=== PATIENT | male | born 1990 | race Caucasian/White ===

== ENCOUNTER 2016-04-20 16:31 | Emergency (ER) | payer MEDICAID ==
[~2016-04-20 16:31] MED LIST: /THIA10TA; ACET65TA; AMITRIP10 PO; AMO500 PO; AUG875 PO; BENZ5TA PO; DOXYCYC100 PO; EFFE75CA75 OR; ELOCONCR TOPICAL; FOLI1TAB; LITH450T OR; MOTRIN800 PO; NAPROSY500 PO; NASONEX NASAL; NO MEDICATIONS; No Historical Meds; RISP12.5 IM; RISP4TAB33 PO; ROBAXIN500 PO; TESSALO100 PO; TRAZ100T OR
== END 2016-04-20 17:10 | disposition left against medical advice (07) ==
LOC: M ED 16:31
DX: Z53.29 Procedure and treatment not carried out because of patient's decision for other reasons (principal)

== ENCOUNTER 2016-08-07 21:57 | Emergency (ER) | payer MEDICAID, OTHER ==
[~2016-08-07] VITALS: Ht 185.4 cm; Wt 81.6 kg
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
[2016-08-08 00:30] VITALS: BP 138/83
[2016-08-08] MEDS ORDERED: IBUPROFEN 600 MG TAB PO ONE (00:30)
--- NOTE | 2016-08-08 09:11 | REP ---
Left wrist four views : There is no fracture or dislocation. Mineralization and joint spaces are normal. There are no calcifications or foreign bodies. Impression: Negative left wrist . Signed by Forest Valdez MD 08/08/2016 09:03 A
--- NOTE | 2016-08-08 09:11 | REP ---
Left humerus two views : There is no fracture or dislocation. Mineralization and joint spaces are normal. There are no calcifications or foreign bodies. Impression: Negative left humerus . Signed by Forest Valdez MD 08/08/2016 09:02 A
== END 2016-08-08 00:34 | disposition home or self-care (01) ==
LOC: M ED 23:01
DX: S60.212A Contusion of left wrist, initial encounter (principal); S46.912A Strain of unspecified muscle, fascia and tendon at shoulder and upper arm level, left arm, initial encounter; V05.00 Pedestrian on foot injured in collision with railway train or railway vehicle in nontraffic accident; Y92.9 Unspecified place or not applicable; Y93.9 Activity, unspecified; Y99.9 Unspecified external cause status; F31.9 Bipolar disorder, unspecified

== ENCOUNTER → 2017-03-17 | Outpatient (CLI) | payer SELFPAY | LOC: M OUTALCOH 10:02 | DX: F10.20 Alcohol dependence, uncomplicated (principal) ==

== ENCOUNTER 2017-03-29 10:42 | Outpatient (RCR) | payer SELFPAY | END 2017-03-30 | LOC: M OUTALCOH 10:42 | DX: F15.20 Other stimulant dependence, uncomplicated (principal); F12.20 Cannabis dependence, uncomplicated; F17.200 Nicotine dependence, unspecified, uncomplicated ==

== ENCOUNTER 2017-06-18 23:05 | Inpatient (IN) | payer MEDICAID, OTHER, SELFPAY ==
[2017-06-18] MEDS ORDERED: SILVER NITRATE APPLICATOR As Ordered (23:29)
[2017-06-19 01:24] LABS: HEMATOCRIT 38.8 % (42.0-52.0); HEMOGLOBIN 14.6 g/dl (13.5-17.5); MEAN CORPUSCULAR HEMOGLOBIN 31.5 pg (27.0-33.0); MEAN CORPUSCULAR VOLUME 83.6 fl (80.0-96.0); PLATELET COUNT, AUTOMATED 304 10^3/uL (150-450); RED BLOOD COUNT 4.64 10^6/uL (4.30-6.10); RED CELL DISTRIBUTION WIDTH 12.9 % (11.5-14.5); WHITE BLOOD COUNT 7.9 10^3/uL (4.0-10.0)
[2017-06-19 01:28] LABS: KETONE, URINE AUTO RFX NEGATIVE (NEGATIVE); LEUKOCYTE ESTERASE UR AUTO RFX NEGATIVE (NEGATIVE); MUCUS, URINE RFX SMALL (NEGATIVE); NITRITE, URINE AUTO RFX NEGATIVE (NEGATIVE); RBC, URINE AUTO RFX 0 /HPF (0-3); SPECIFIC GRAVITY UR AUTO RFX 1.009 (1.002-1.035); SQUAM EPITHELIAL CELL UR AURFX 0 /HPF (0-6); WBC, URINE AUTO RFX 0 /HPF (0-3)
[2017-06-19 01:45] LABS: MEAN CORPUSCULAR HGB CONC 37.6 g/dl (32.0-36.5)
[2017-06-19 01:46] LABS: POS COUNT POS FLAG
[2017-06-19 01:48] LABS: AMPHETAMINES LEVEL URINE NEGATIVE (NEGATIVE); BARBITURATES URINE NEGATIVE (NEGATIVE); BENZODIAZEPINES URINE NEGATIVE (NEGATIVE); CANNABINOIDS URINE POSITIVE (NEGATIVE); COCAINE METABOLITE URINE NEGATIVE (NEGATIVE); METHADONE URINE NEGATIVE (NEGATIVE); OPIATES URINE NEGATIVE (NEGATIVE); PHENCYCLIDINE URINE NEGATIVE (NEGATIVE)
[2017-06-19 01:53] LABS: ALBUMIN/GLOBULIN RATIO 1.21 (1.00-1.93); ALKALINE PHOSPHATASE 99 U/L (45-117); ALT/SGPT 175 U/L (12-78); ANION GAP 9 MEQ/L (8-16); AST/SGOT 78 U/L (7-37); BILIRUBIN,DIRECT 0.2 MG/DL (0.0-0.2); BILIRUBIN,TOTAL 0.6 MG/DL (0.2-1.0); BLOOD UREA NITROGEN 10 MG/DL (7-18); CALCIUM LEVEL 8.9 MG/DL (8.5-10.1); CARBON DIOXIDE LEVEL 22 MEQ/L (21-32); CHLORIDE LEVEL 110 MEQ/L (98-107); GLOMERULAR FILTRATION RATE > 60.0 (>60); GLUCOSE, FASTING 103 MG/DL (70-100); POTASSIUM SERUM 3.1 MEQ/L (3.5-5.1); SALICYLATE LEVEL < 1.7 MG/DL (5.0-30.0); SODIUM LEVEL 141 MEQ/L (136-145); TOTAL PROTEIN 7.3 GM/DL (6.4-8.2)
[2017-06-19 02:43] LABS: ACETAMINOPHEN LEVEL < 2.0 UG/ML (10.0-30.0); ETHYL ALCOHOL (ETHANOL) < 0.003 % (0.000-0.010)
[2017-06-19] MEDS: POTASSIUM CHLORIDE 10 MEQ SR TABLET PO (03:12)
[2017-06-19] MEDS ORDERED: MOM 30ML SUSPENSION UDC PO (03:15)
[2017-06-19] MEDS ORDERED: ACETAMINOPHEN TAB 650MG DOSE (2X325MG) PO (03:15)
[2017-06-19] MEDS ORDERED: MAALOX 30 ML SUSP *UDC PO (03:15)
[2017-06-19] MEDS: NICOTINE 21MG/24HR 1 EA TRANSDERMAL TD (08:51)
[2017-06-19] MEDS ORDERED: NICOTINE 21MG/24HR 1 EA TRANSDERMAL TD (09:00)
[2017-06-19] MEDS: SERTRALINE HCL 50 MG TAB PO (16:30)
[2017-06-19] MEDS: DOCUSATE SODIUM 100 MG CAP PO (21:00)
[2017-06-19] MEDS: traZODone 50 MG TAB PO (22:07)
[2017-06-19] MEDS: TAMSULOSIN 0.4 MG CAP PO (22:07)
[2017-06-20] MEDS: diphenhydrAMINE 50 MG CAP PO (01:14)
[2017-06-20] MEDS: DOCUSATE SODIUM 100 MG CAP PO ×2 (09:00→20:12)
[2017-06-20] MEDS: SERTRALINE HCL 50 MG TAB PO (09:23)
[2017-06-20] MEDS: NICOTINE 21MG/24HR 1 EA TRANSDERMAL TD (16:58)
[2017-06-20] MEDS: hydrOXYzine 25 MG TAB PO (16:58)
[2017-06-20] MEDS: TAMSULOSIN 0.4 MG CAP PO (20:12)
[2017-06-20] MEDS: traZODone 50 MG TAB PO (22:50)
[2017-06-21] MEDS: DOCUSATE SODIUM 100 MG CAP PO ×2 (09:00→21:00)
[2017-06-21] MEDS: SERTRALINE HCL 50 MG TAB PO (09:26)
[2017-06-21] MEDS: hydrOXYzine 25 MG TAB PO ×2 (14:15→21:44)
[2017-06-21] MEDS: TAMSULOSIN 0.4 MG CAP PO (21:44)
[2017-06-21] MEDS: ARIPiprazole 15 MG TAB (AbiLIFY) PO (21:44)
[2017-06-22] MEDS: DOCUSATE SODIUM 100 MG CAP PO ×2 (09:00→21:24)
[2017-06-22] MEDS: hydrOXYzine 25 MG TAB PO ×2 (12:15→18:57)
[2017-06-22] MEDS: ARIPiprazole 15 MG TAB (AbiLIFY) PO (21:24)
[2017-06-22] MEDS: TAMSULOSIN 0.4 MG CAP PO (21:24)
[2017-06-22] MEDS: traZODone 50 MG TAB PO (21:25)
[2017-06-23] MEDS: hydrOXYzine 25 MG TAB PO (08:05)
[2017-06-23] MEDS: DOCUSATE SODIUM 100 MG CAP PO (09:00)
[2017-06-23] MEDS: NICOTINE 21MG/24HR 1 EA TRANSDERMAL TD (11:43)
== END 2017-06-23 13:15 | disposition home or self-care (01) | DRG 885 ==
LOC: M PSY 06-21 13:24 → M ED 23:05 → M PSY 06-19 04:40
DX: F31.5 Bipolar disorder, current episode depressed, severe, with psychotic features (principal); F15.11 Other stimulant abuse, in remission; Z76.5 Malingerer [conscious simulation]; F17.210 Nicotine dependence, cigarettes, uncomplicated; K59.00 Constipation, unspecified; E87.6 Hypokalemia; R79.89 Other specified abnormal findings of blood chemistry; F60.3 Borderline personality disorder

== ENCOUNTER 2018-07-26 12:45 | Emergency (ER) | payer MEDICAID, SELFPAY ==
[~2018-07-26] VITALS: Ht 185.4 cm; Wt 90.9 kg
[2018-07-26 12:45] VITALS: BP 164/102
[~2018-07-26 12:45] MED LIST changes: +ARIP1TAB10 PO; +HYDR-3363 PO; +VITA250T30 PO
[2018-08-02] MEDS ORDERED: AUGM875T28 PO (09:10)
== END 2018-07-26 13:52 | disposition left against medical advice (07) ==
LOC: M ED 12:45
DX: R68.84 Jaw pain (principal); Z53.21 Procedure and treatment not carried out due to patient leaving prior to being seen by health care provider

== ENCOUNTER 2018-07-26 16:00 | Inpatient (IN) | payer MEDICAID, OTHER, SELFPAY ==
[~2018-07-26] VITALS: Ht 182.9 cm; Wt 82.5 kg
[2018-07-26] MEDS ORDERED: HALOPERIDOL 5 MG/ML VIAL (J1630) As Ordered ONE (16:02)
[2018-07-26] MEDS ORDERED: diphenhydrAMINE INJ 50MG/ML VIAL (J1200) As Ordered ONE (16:02)
[2018-07-26] MEDS ORDERED: LORazepam 2 MG/ML VIAL (J2060) IM STA (16:03)
[2018-07-26] MEDS ORDERED: LORazepam 2 MG/ML VIAL (J2060) As Ordered ONE (16:03)
[2018-07-26] MEDS ORDERED: HALOPERIDOL 5 MG/ML VIAL (J1630) IM STA ×2 (16:03→20:51)
[2018-07-26] MEDS ORDERED: diphenhydrAMINE INJ 50MG/ML VIAL (J1200) IM ONE ×2 (16:15→21:00)
[2018-07-26 16:50] LABS: BASO % 0.3 % (0.0-1.0); EOS # 0.1 10^3/uL (0.0-0.50); HEMATOCRIT 43.3 % (42.0-52.0); HEMOGLOBIN 15.7 g/dl (13.5-17.5); MEAN CORPUSCULAR HEMOGLOBIN 32.6 pg (27.0-33.0); MEAN CORPUSCULAR HGB CONC 36.3 g/dl (32.0-36.5); MONO # 0.7 10^3/uL (0.0-0.8); MONO % 5.7 % (0.0-5.0); NEUTROPHILS # 8.6 10^3/uL (1.8-7.7); NEUTROPHILS % 68.8 % (36.0-66.0); PLATELET COUNT, AUTOMATED 292 10^3/uL (150-450); RED BLOOD COUNT 4.81 10^6/uL (4.30-6.10); WHITE BLOOD COUNT 12.4 10^3/uL (4.0-10.0)
--- NOTE | 2018-07-26 16:55 | REP ---
Clinical: Acute cough . Comparison: 04/07/2011 . Findings: The mediastinum and cardiac silhouette are stable and within normal limits for portable technique. The lung thompson are clear without acute consolidation, effusion, or pneumothorax. Skeletal structures are intact. Impression: No acute cardiopulmonary process appreciated. Electronically Signed by Erasmo Pitts MD 07/26/2018 04:45 P
[2018-07-26] MEDS ORDERED: LORazepam 2 MG/ML VIAL (J2060) IV STA ×2 (17:02→22:48)
[2018-07-26] MEDS ORDERED: NS 1,000 ML IV ONE (17:15)
[2018-07-26 17:28] LABS: ACETAMINOPHEN LEVEL < 2.0 UG/ML (10.0-30.0); ALBUMIN 4.2 GM/DL (3.2-5.2); ALT/SGPT 97 U/L (12-78); BILIRUBIN,DIRECT 0.2 MG/DL (0.0-0.2); BILIRUBIN,TOTAL 0.6 MG/DL (0.2-1.0); BLOOD UREA NITROGEN 11 MG/DL (7-18); CARBON DIOXIDE LEVEL 20 MEQ/L (21-32); CHLORIDE LEVEL 108 MEQ/L (98-107); CPK CREATINE PHOSPHOKINASE 184 U/L (39-308); CREATININE FOR GFR 1.14 MG/DL (0.70-1.30); ETHYL ALCOHOL (ETHANOL) 0.138 % (0.000-0.010); GLOMERULAR FILTRATION RATE > 60.0 (>60); GLUCOSE, FASTING 116 MG/DL (70-100); MB/CK RELATIVE INDEX 0.65 (< OR =4); POTASSIUM SERUM 3.3 MEQ/L (3.5-5.1); SALICYLATE LEVEL < 1.7 MG/DL (5.0-30.0); SODIUM LEVEL 142 MEQ/L (136-145); THYROID STIMULATING HORMONE 0.377 uIU/ML (0.358-3.740); TOTAL PROTEIN 7.3 GM/DL (6.4-8.2); TROPONIN I < 0.02 NG/ML (< 0.10)
--- NOTE | 2018-07-26 18:00 | REP ---
Clinical: Altered mental status . Comparison: 12/07/2009 . Findings: The ventricles, sulci, and cisterns are normal in position and appearance. Arreola-white differentiation is maintained. No acute intracranial hemorrhage, mass/mass effect, pathology or trauma/injury. No evidence for acute infarction. No extra-axial fluid collection. Calvarium is intact. 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 Impression: Normal noncontrast head CT. No evidence for acute intracranial pathology or trauma/injury. Electronically Signed by Erasmo Pitts MD 07/26/2018 05:51 P
[2018-07-26 18:58] LABS: AMPHETAMINES LEVEL URINE NEGATIVE (NEGATIVE); BARBITURATES URINE NEGATIVE (NEGATIVE); BENZODIAZEPINES URINE NEGATIVE (NEGATIVE); CANNABINOIDS URINE POSITIVE (NEGATIVE); COCAINE METABOLITE URINE NEGATIVE (NEGATIVE); METHADONE URINE NEGATIVE (NEGATIVE); OPIATES URINE NEGATIVE (NEGATIVE); PHENCYCLIDINE URINE NEGATIVE (NEGATIVE)
[2018-07-26] MEDS ORDERED: POTASSIUM CHLORIDE 10 MEQ SR TABLET PO ONE (20:00)
--- NOTE | 2018-07-26 20:04 | ECGEPIP ---
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
[2018-07-26] MEDS ORDERED: ACETAMINOPHEN TAB 650MG DOSE (2X325MG) PO PRN (20:45)
[2018-07-26] MEDS ORDERED: MAALOX 30 ML SUSP *UDC PO PRN (20:45)
[2018-07-26] MEDS ORDERED: MOM 30ML SUSPENSION UDC PO PRN (20:45)
[2018-07-26] MEDS: THIAMINE 100 MG TAB PO SCH (21:00)
[2018-07-26] MEDS ORDERED: LORazepam 2 MG TAB PO PRN (21:00)
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
[2018-07-26] MEDS ORDERED: chlorproMAZINE INJ 50MG/2ML AMP (J3230) IM STA ×2 (21:47→22:02)
[2018-07-26] MEDS: KCL 40MEQ in NS 1000ML 1,000 ML IV SCH (21:50)
[2018-07-27] VITALS (42 sets, daily range): BP systolic 111–166; BP diastolic 51–90; O2SAT 97
[2018-07-27] MEDS ORDERED: HALOPERIDOL 5 MG/ML VIAL (J1630) IM STA (00:07)
[2018-07-27] MEDS ORDERED: LORazepam 2 MG/ML VIAL (J2060) IM STA (00:07)
[2018-07-27] MEDS: NS 1,000 ML IV SCH ×4 (00:30→02:51)
[2018-07-27] MEDS ORDERED: LORazepam 2 MG/ML VIAL (J2060) IV STA (00:37)
[2018-07-27] MEDS ORDERED: MORPHINE 4 MG/ML 1ML VIAL/SYRINGE (J2270) IV PRN (01:00)
[2018-07-27] MEDS ORDERED: PROPOFOL 200 MG/20 ML VIAL As Ordered ONE (01:03)
[2018-07-27] MEDS ORDERED: PROPOFOL 1,000 MG/100 ML VIAL As Ordered ONE (01:03)
[2018-07-27] MEDS ORDERED: SUCCINYLCHOLINE INJ 200 MG/10 ML VIAL (J0330) IV ONE (01:30)
[2018-07-27] MEDS: MIDAZOLAM INJ 2 MG/2 ML VIAL (J2250) IV PRN ×4 (01:30→16:24)
[2018-07-27] MEDS ORDERED: PROPOFOL 1,000 MG in APPROPRIATE DILUENT 1 EA IV SCH (01:30)
[2018-07-27] MEDS ORDERED: THIAMINE HCL 200 MG/2 ML VIAL (J3411) IV ONE (01:30)
[2018-07-27] MEDS ORDERED: PROPOFOL 200 MG/20 ML VIAL IV ONE (01:30)
[2018-07-27] MEDS: PROPOFOL 1,000 MG in APPROPRIATE DILUENT 1 EA IV SCH ×9 (02:44→21:53)
[2018-07-27 02:50] LABS: ABG HCO3 20.5 MEQ/L (22.0-26.0); ABG O2 SATURATION 99.8 % (95.0-99.0); ABG STANDARD HCO3 21.2 MEQ/L (22.0-26.0); ABG TOTAL CO2 21.6 MEQ/L (22.0-29.0); ABG pH (ARTERIAL) 7.374 UNITS (7.350-7.450)
[2018-07-27 02:52] LABS: ABG PARTIAL PRESSURE O2 465.3 mmHg (75.0-100.0)
[2018-07-27] MEDS: IPRATROPIUM 0.5MG/ALBUTEROL 2.5MG INH SOL UD 3ML (DUONEB)(J7620) NEB SCH ×5 (03:11→20:00)
[2018-07-27] MEDS ORDERED: COMBIVENT RESPIMAT 100-20MCG INHALER 4GM INH SCH (04:00)
[2018-07-27] MEDS: KCL 40MEQ in NS 1000ML 1,000 ML IV SCH (04:15)
[2018-07-27 04:59] LABS: BASO % 0.5 % (0.0-1.0); EOS # 0.1 10^3/uL (0.0-0.50); HEMATOCRIT 35.7 % (42.0-52.0); LYMPH # 2.4 10^3/uL (1.5-6.5); LYMPH % 27.5 % (24.0-44.0); MEAN CORPUSCULAR HEMOGLOBIN 32.3 pg (27.0-33.0); MEAN CORPUSCULAR HGB CONC 35.3 g/dl (32.0-36.5); MEAN CORPUSCULAR VOLUME 91.5 fl (80.0-96.0); MONO # 0.6 10^3/uL (0.0-0.8); MONO % 6.4 % (0.0-5.0); NEUTROPHILS # 5.6 10^3/uL (1.8-7.7); NEUTROPHILS % 64.4 % (36.0-66.0); PLATELET COUNT, AUTOMATED 223 10^3/uL (150-450); WHITE BLOOD COUNT 8.6 10^3/uL (4.0-10.0)
[2018-07-27 05:03] LABS: HEMOGLOBIN 12.6 g/dl (13.5-17.5)
[2018-07-27 05:36] LABS: ALBUMIN 3.1 GM/DL (3.2-5.2); ALT/SGPT 81 U/L (12-78); BILIRUBIN,TOTAL 0.4 MG/DL (0.2-1.0); BLOOD UREA NITROGEN 11 MG/DL (7-18); CALCIUM LEVEL 7.3 MG/DL (8.5-10.1); CARBON DIOXIDE LEVEL 23 MEQ/L (21-32); CHLORIDE LEVEL 116 MEQ/L (98-107); CREATININE FOR GFR 0.93 MG/DL (0.70-1.30); ETHYL ALCOHOL (ETHANOL) < 0.003 % (0.000-0.010); GLOMERULAR FILTRATION RATE > 60.0 (>60); GLUCOSE, FASTING 94 MG/DL (70-100); MAGNESIUM LEVEL 2.1 MG/DL (1.8-2.4); POTASSIUM SERUM 4.2 MEQ/L (3.5-5.1); SODIUM LEVEL 145 MEQ/L (136-145); TOTAL PROTEIN 5.8 GM/DL (6.4-8.2)
--- NOTE | 2018-07-27 08:57 | REP ---
Portable chest x-ray: Single view. 08:15 a.m. film. History: Intubated patient. Comparison study is from 01:17 a.m. on the same date. Findings: Endotracheal tube remain in good position at the level of proximal clavicles. An NG tube enters left upper quadrant of the abdomen. Oxygen delivery tubing and EKG monitoring electrodes are seen. The lungs are well inflated and clear. Pleural angles are sharp. Cardiomediastinal silhouette is unremarkable. Impression: Endotracheal and nasogastric tubes in good position. No acute disease. Electronically Signed by Azar Zamora MD 07/27/2018 08:48 A
--- NOTE | 2018-07-27 08:59 | CR ---
DATE OF CONSULTATION: 07/27/2018 Pulmonary critical care team was asked by hospitalist for consult on Brayan Grajeda. Mr. Grajeda is a 27-year-old male who was initially admitted for alcohol intoxication and behavioral issues but apparently became combative and initially escaped from the emergency room but was brought back again and remained combative and agitated and was eventually intubated. The patient was seen this morning in the intensive care unit (ICU) while intubated, sedated and noncommunicative. No additional history could be obtained from the patient. History was obtained from the history and physical notes from the hospitalist in the computer. The patient initially had a blood alcohol level of 0.138. Urine tox was positive for cannabis. He demonstrated some sinus tachycardia and has remained tachycardia. A sedation vacation is planned for this morning. REVIEW OF SYSTEMS: Unable to be obtained. MEDICATIONS: According to the history and physical, no active medications. According to the hospitalist, the patient had been on psych medications but has not been taking those for a long time. ALLERGIES: No known allergies. PAST MEDICAL HISTORY: Mood disorder with psychosis. Possible history of substance abuse. FAMILY MEDICAL HISTORY: Unobtainable. SOCIAL HISTORY: The patient was listed as a current smoker. He does consume alcohol but it is unclear how much. PHYSICAL EXAMINATION: Vitals: Temperature is 98.6, pulse was 120, respiratory rate 25, blood pressure is 126/74, pulse ox 99%. The patient is on ventilator on pressure regulated volume control with tidal volume of 48, respiratory rate of 14 and PEEP of 5. GENERAL: Patient is sedate and unresponsive. HEENT: Head is normocephalic. Pupils are pinpoint but reactive. Moist mucous membranes. The patient is intubated. Neck: Neck is supple. No cervical lymphadenopathy. No jugular venous distention (JVD). Trachea is midline. Cardiac: Tachycardic. S1, S2. No murmurs. Pulmonary: Clear to auscultation bilaterally. No wheezes, rales, rhonchi or crackles. No accessory muscle use. Abdomen: Soft and nontender. Hypoactive bowel sounds. Extremities: No clubbing, cyanosis or edema. Skin with some scrapes and bruises on the arms and feet. Skin is otherwise warm and dry. Neurologic: No clonus. LABORATORY DATA: WBC 8.6, hemoglobin is 12.6, hematocrit is 35.7, platelets 223. Sodium 145, potassium 4.2, chloride 116, carbon dioxide 23, BUN 11, creatinine 0.93, glucose 94, calcium 7.3, magnesium 2.1, total bili 0.4, AST 81, ALT 81, alkaline phosphatase 68, total protein 5.8, albumin 3.1. Chest x-rays show endotracheal tip about 5.1 cm above the zahra. ASSESSMENT/PLAN: 1. Respiratory failure secondary to altered mental status. The patient is currently intubated. He will be given a trial sedation vacation to determine whether or not to determine whether he can be extubated today. Plan will be to monitor for determination of ability to extubate. 2. Alcohol intoxication. The patient is on a multivitamin. He is on thiamine. He will likely need psychiatric services when he is stable. Total critical care time excluding all procedures was 45 minutes. [facility]
[2018-07-27] MEDS: D5W/0.45% SODIUM CHLORIDE 1,000 ML IV SCH ×2 (09:01→19:00)
--- NOTE | 2018-07-27 09:05 | REP ---
Portable chest x-ray: Single view. 01:17 a.m. film. History: Endotracheal tube placement. Comparison chest x-ray: July 26, 2018 at 04:40 p.m.. Findings: The lateral pleural angles and the lower lung thompson are excluded from the field of view. Endotracheal tube is seen in good position at the level of proximal clavicles. NG tube is seen coursing through the distal mediastinum towards the left upper quadrant. EKG electrodes are seen. The visualized lung thompson are clear. Electronically Signed by Azar Zamora MD 07/27/2018 08:57 A
[2018-07-27] MEDS: PANTOPRAZOLE 40MG INJ (PROTONIX) (C9113) IV SCH (09:53)
[2018-07-27] MEDS: FOLIC ACID 1 MG TAB PO SCH (09:54)
[2018-07-27] MEDS: THIAMINE 100 MG TAB PO SCH ×2 (09:54→19:49)
[2018-07-27] MEDS: CHLORHEXIDINE GLUCONATE 0.12 % 15ML UDC (PERIDEX ORAL RINSE) MT SCH ×2 (09:54→19:49)
[2018-07-27] MEDS: MULTIVITAMINS/MINERALS THERAP 1 TAB PO SCH (09:54)
[2018-07-27] MEDS: ENOXAPARIN 40 MG/0.4 ML SYRINGE (J1650) SC SCH (09:54)
[2018-07-27 10:10] LABS: ABG BASE EXCESS -2.4 (-2.0-2.0); ABG HCO3 21.7 MEQ/L (22.0-26.0); ABG O2 SATURATION 99.5 % (95.0-99.0); ABG PARTIAL PRESSURE CO2 35.5 mmHg (35.0-45.0); ABG PARTIAL PRESSURE O2 188.6 mmHg (75.0-100.0); ABG STANDARD HCO3 22.5 MEQ/L (22.0-26.0); ABG TOTAL CO2 22.8 MEQ/L (22.0-29.0); ABG pH (ARTERIAL) 7.405 UNITS (7.350-7.450)
--- NOTE | 2018-07-27 10:49 | IPNPDOC ---
Subjective Date Seen The patient was seen on 07/27/18. Subjective Chief Complaint/HPI Patient is intubated and sedated, seems comfortable, in no distress General: Reports: ROS Unobtainable Objective Physical Examination General Exam: Positive: No Acute Distress Eye Exam: Positive: PERRLA ENT Exam: Positive: Atraumatic Neck Exam: Positive: Supple; Negative: JVD, thyromegaly, +2 carotid pulse wo bruit, Lymphadenopathy, Other Chest Exam: Positive: Clear to auscultation, Normal air movement Heart Exam: Positive: Rate Normal, Regular Rhythm, Normal S1, Normal S2 Abdomen Exam: Positive: Normal bowel sounds, Soft Extremity Exam: Positive: Normal pulses; Negative: Edema Skin Exam: Positive: Nl turgor and temperature; Negative: Rash Assessment /Plan Problems (1) Altered mental status Status: Acute Problem Text: Patient is intubated to protect airway He is sedated with propofol and ICU Patient will probably be extubated today. Once he is more awake, alert and noncombative Most likely cause of his altered mental status. His alcohol and illicit drug use Continue monitoring I/O. Vital signs and telemetry Further, as per pulmonary critical care consultation Plan/VTE VTE Prophylaxis Ordered?: No VTE Exclusion Mechanical Proph: Low Risk for VTE VTE Exclusion Pharmacological: At Low Risk for VTE VS, I&O, 24H, Fishbone Vital Signs/I&O Vital Signs Date Time Temp Pulse Resp B/P (MAP) Pulse Ox O2 Delivery O2 Flow Rate FiO2 07/27/18 09:00 112 148/73 (98) 99 40 07/27/18 08:00 98.7 25 07/27/18 07:41 Ventilator I&O- Last 24 Hours up to 6 AM 07/27/18 05:59 Intake Total 1000 ml Output Total 1250 ml Balance -250 ml Laboratory Data 24H LABS Laboratory Tests 2 07/26/18 16:05: Anion Gap 14, Glomerular Filtration Rate > 60.0, Calcium Level 9.0, Aspartate Amino Transf (AST/SGOT) 50H, Alanine Aminotransferase (ALT/SGPT) 97H, Alkaline Phosphatase 86, Total Bilirubin 0.6, Direct Bilirubin 0.2, Total Creatine Kinase 184, Creatine Kinase MB 1.0, Creatine Kinase MB Relative Index 0.65, Troponin I < 0.02, Total Protein 7.3, Albumin 4.2, Albumin/Globulin Ratio 1.35, Thyroid Stimulating Hormone (TSH) 0.377, Salicylates Level < 1.7L, Acetaminophen Level < 2.0L, Ethyl Alcohol Level 0.138H 07/26/18 16:25: Immature Granulocyte % (Auto) 0.2, White Blood Count 12.4H, Red Blood Count 4.81, Hemoglobin 15.7, Hematocrit 43.3, Mean Corpuscular Volume 90.0, Mean Corpuscular Hemoglobin 32.6, Mean Corpuscular Hemoglobin Concent 36.3, Red Cell Distribution Width 12.6, Platelet Count 292, Neutrophils (%) (Auto) 68.8H, Lymphocytes (%) (Auto) 24.0, Monocytes (%) (Auto) 5.7H, Eosinophils (%) (Auto) 1.0, Basophils (%) (Auto) 0.3, Neutrophils # (Auto) 8.6H, Lymphocytes # (Auto) 3.0, Monocytes # (Auto) 0.7, Eosinophils # (Auto) 0.1, Basophils # (Auto) 0.0, Nucleated Red Blood Cells % (auto) 0.0, Ammonia 34H 07/26/18 16:55: Bedside Glucose (Misc Panel) 117H 07/26/18 18:26: Urine Amphetamines Screen NEGATIVE, Urine Benzodiazepines Screen NEGATIVE, Urine Opiates Screen NEGATIVE, Urine Methadone Screen NEGATIVE, Urine Barbiturates Screen NEGATIVE, Urine Phencyclidine Screen NEGATIVE, Urine Cocaine Metabolite Screen NEGATIVE, Urine Cannabinoids Screen POSITIVEH 07/27/18 02:45: Blood Gas Bicarbonate Standard 21.2L, Arterial Blood pH 7.374, Arterial Blood Partial Pressure CO2 36.0, Arterial Blood Partial Pressure O2 465.3H, Arterial Blood Total CO2 21.6L, Arterial Blood HCO3 20.5L, Arterial Blood Base Excess - 4.0L, Arterial Blood Oxygen Saturation 99.8H 07/27/18 04:44: Immature Granulocyte % (Auto) 0.2, White Blood Count 8.6, Red Blood Count 3.90L, Hemoglobin 12.6#L, Hematocrit 35.7L, Mean Corpuscular Volume 91.5, Mean Cor puscular Hemoglobin 32.3, Mean Corpuscular Hemoglobin Concent 35.3, Red Cell Distribution Width 12.9, Platelet Count 223, Neutrophils (%) (Auto) 64.4, Lymphocytes (%) (Auto) 27.5, Monocytes (%) (Auto) 6.4H, Eosinophils (%) (Auto) 1.0, Basophils (%) (Auto) 0.5, Neutrophils # (Auto) 5.6, Lymphocytes # (Auto) 2.4, Monocytes # (Auto) 0.6, Eosinophils # (Auto) 0.1, Basophils # (Auto) 0.0, Nucleated Red Blood Cells % (auto) 0.0, Anion Gap 6L, Glomerular Filtration Rate > 60.0, Blood Urea Nitrogen 11, Creatinine 0.93, Sodium Level 145, Potassium Level 4.2#, Chloride Level 116H, Carbon Dioxide Level 23, Calcium Level 7.3#L, Aspartate Amino Transf (AST/SGOT) 81H, Alanine Aminotransferase (ALT/SGPT) 81H, Alkaline Phosphatase 68, Total Bilirubin 0.4, Total Protein 5.8#L, Albumin 3.1#L, Magnesium Level 2.1, Albumin/Globulin Ratio 1.15, Ethyl Alcohol Level < 0.003 07/27/18 06:31: Bedside Glucose (Misc Panel) 90 07/27/18 09:48: Blood Gas Bicarbonate Standard 22.5, Arterial Blood pH 7.405, Arterial Blood Partial Pressure CO2 35.5, Arterial Blood Partial Pressure O2 188.6H, Arterial Blood Total CO2 22.8, Arterial Blood HCO3 21.7L, Arterial Blood Base Excess - 2.4L, Arterial Blood Oxygen Saturation 99.5H CBC/BMP Laboratory Tests 07/26/18 16:05 07/26/18 16:25 Red Blood Count 4.81, Mean Corpuscular Volume 90.0, Mean Corpuscular Hemoglobin 32.6, Mean Corpuscular Hemoglobin Concent 36.3, Red Cell Distribution Width 12.6, Neutrophils (%) (Auto) 68.8 H, Lymphocytes (%) (Auto) 24.0, Monocytes (%) (Auto) 5.7 H, Eosinophils (%) (Auto) 1.0, Basophils (%) (Auto) 0.3, Neutrophils # (Auto) 8.6 H, Lymphocytes # (Auto) 3.0, Monocytes # (Auto) 0.7, Eosinophils # (Auto) 0.1, Basophils # (Auto) 0.0 07/27/18 04:44 Red Blood Count 3.90 L, Mean Corpuscular Volume 91.5, Mean Corpuscular Hemoglobin 32.3, Mean Corpuscular Hemoglobin Concent 35.3, Red Cell Distribution Width 12.9, Neutrophils (%) (Auto) 64.4, Lymphocytes (%) (Auto) 27.5, Monocytes (%) (Auto) 6.4 H, Eosinophils (%) (Auto) 1.0, Basophils (%) (Auto) 0.5, Ne utrophils # (Auto) 5.6, Lymphocytes # (Auto) 2.4, Monocytes # (Auto) 0.6, Eosinophils # (Auto) 0.1, Basophils # (Auto) 0.0, Calcium Level 7.3 #L, Aspartate Amino Transf (AST/SGOT) 81 H, Alanine Aminotransferase (ALT/SGPT) 81 H, Alkaline Phosphatase 68, Total Bilirubin 0.4, Total Protein 5.8 #L, Albumin 3.1 #L OFELIA PATTERSON MD July 27, 2018 10:49
[2018-07-27] MEDS ORDERED: PILL CUTTER 1 EACH XX PRN (11:00)
[2018-07-27] MEDS: dexmedeTOMidine 200 MCG in APPROPRIATE DILUENT 1 EA IV SCH (19:49)
--- NOTE | 2018-07-27 21:58 | ECGEPIP ---
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
[2018-07-28] VITALS (20 sets, daily range): BP systolic 108–169; BP diastolic 53–93
[2018-07-28] MEDS: IPRATROPIUM 0.5MG/ALBUTEROL 2.5MG INH SOL UD 3ML (DUONEB)(J7620) NEB SCH ×8 (00:40→23:30)
[2018-07-28] MEDS: PROPOFOL 1,000 MG in APPROPRIATE DILUENT 1 EA IV SCH ×3 (00:50→06:37)
[2018-07-28] MEDS: dexmedeTOMidine 200 MCG in APPROPRIATE DILUENT 1 EA IV SCH ×2 (03:47→08:48)
[2018-07-28] MEDS: D5W/0.45% SODIUM CHLORIDE 1,000 ML IV SCH (05:03)
[2018-07-28] MEDS: PANTOPRAZOLE 40MG INJ (PROTONIX) (C9113) IV SCH (08:05)
[2018-07-28] MEDS: ENOXAPARIN 40 MG/0.4 ML SYRINGE (J1650) SC SCH (08:06)
[2018-07-28] MEDS: FOLIC ACID 1 MG TAB PO SCH (08:06)
[2018-07-28] MEDS: MULTIVITAMINS/MINERALS THERAP 1 TAB PO SCH (08:06)
[2018-07-28] MEDS: CHLORHEXIDINE GLUCONATE 0.12 % 15ML UDC (PERIDEX ORAL RINSE) MT SCH (08:06)
[2018-07-28] MEDS: THIAMINE 100 MG TAB PO SCH ×2 (08:06→19:58)
[2018-07-28] MEDS: MIDAZOLAM INJ 2 MG/2 ML VIAL (J2250) IV PRN (09:14)
--- NOTE | 2018-07-28 10:04 | REP ---
Portable chest x-ray: Single view. History: Post intubation. Comparison study: July 27, 2018. Findings: Endotracheal tube remains in good position at the level of the proximal clavicles. An NG tube enters left upper quadrant. EKG electrodes seen. The lungs are well inflated and clear. Pleural angles are sharp. Heart size is normal. Impression: Endotracheal and nasogastric tubes in good position. Electronically Signed by Azar Zamora MD 07/28/2018 09:56 A
--- NOTE | 2018-07-28 12:00 | CCN ---
DATE: 07/28/2018 Patient was seen and examined this morning during bedside rounds. He was started on Precedex overnight for sedation, in addition to his propofol. The patient did not have any fevers overnight. The patient had a weaning trial done today, which he tolerated well PHYSICAL EXAMINATION: VITALS: Temperature 98.4, pulse 104, respirations 22, blood pressure 122/70, oxygen saturation 100% on 30% FiO2, net negative approximately 1 liter. GENERAL: Patient is intubated, is sedated, but is arousable and somewhat combative. He is intermittently following commands. HEENT: Normocephalic, atraumatic. Pupils are equal and reactive to light bilaterally. NECK: Supple. Trachea is midline. No palpable adenopathy. CARDIOVASCULAR: Tachycardic, regular rate, normal S1, S2. No murmurs appreciated. LUNGS: Coarse ventilator breath sounds bilaterally. No wheezing, rales or rhonchi. ABDOMEN: Soft, nontender, nondistended. EXTREMITIES: There is no lower extremity edema noted bilaterally. Pulses are equal and palpable. LABS: WBC 8.6, hemoglobin 12.6, platelet 223. Chemistries - sodium 145, potassium 4.2, chloride 116, bicarb 23, BUN 11, creatinine 0.93, glucose 94, AST 81, ALT 81, alkaline phosphatase 68. Chest x-ray this morning showed ET tube in position and an NG tube coursing below the diaphragm. There is no focal opacities or infiltrates. No pleural effusions noted. ASSESSMENT/PLAN: Mr. Grajeda is a 27-year-old male with a possible history of mood disorder who presented with acute intoxication and agitation. The patient was combative in the ED and was sedated and was eventually intubated. His utox was positive for cannibis and alcohol. Patient may have taken synthetic cannibis which can cause increased agitation contributing to his combativeness This morning, the patient had a weaning trial performed while on Precedex and propofol. The patient did well on the weaning trial and his propofol was discontinued and the patient was extubated to humidified oxygen. - Would wean the patient off of oxygen to room air as tolerated. - Continue to wean Precedex down to off. - The patient may require p.r.n. medications for agitation. Will place him on a one-to-one for now due to his risk for elopement and he may require psychiatric evaluation. - The patient had some mildly elevated transaminitis likely in the setting of his acute alcohol intoxication. His urine toxicology was positive for cannabis also, unclear if he may have taken synthetic cannibis. - Can advance diet as tolerated. Deep vein thrombosis (DVT) prophylaxis. FULL CODE. Total critical care time spent, not including any procedures, approximately 50 minutes. Please do not hesitate to call if any further questions or concerns. MTDD
--- NOTE | 2018-07-28 13:22 | IPNPDOC ---
Subjective Date Seen The patient was seen on 07/28/18. Subjective Chief Complaint/HPI Patient extubated today is comfortable, cooperative, complaining of sore throat General: Denies: ROS Unobtainable, Chills, Night Sweats, Fatigue, Malaise, Normal Appetite, Other Symptoms Constitutional: Denies: Chills, Fever, Malaise, Night Sweats, Weakness, Fatigue, Weight Loss, Lethargy, Other Eyes: Denies: Pain, Vision change, Conjunctivae inflammation, Eyelid inflammation, Redness, Other ENT: Denies: Head Aches, Ear Pain, Dysphagia, Sinus Congestion, Post Nasal Drip, Sore Throat, Epistaxis, Other Symptoms Skin: Denies: Rash, Lesions, Jaundice, Bruising, Itching, Dry, Breakdown, Nail Changes, Other Pulmonary: Denies: Dyspnea, Cough, Pleuritic Chest Pain, Other Symptoms Cardiovascular: Denies: Chest Pain, Palpitations, Orthopnea, Paroxysmal Noc. Dyspnea, Edema, Lt Headedness, Other Symptoms Gastrointestinal: Denies: Nausea, Vomiting, Abdominal Pain, Diarrhea, Constipation, Melena, Hematochezia, Other Symptoms Genitourinary: Denies: Dysuria, Frequency, Incontinence, Hematuria, Retention, Other Symptoms Hematologic: Denies: Bruising, Bleeding Excessively, Petecchia, Purpura, Enlarged Lymph Nodes, Other Hematologic Endocrine: Denies: Polydipsia, Polyphagia, Polyuria, Heat Intolerance, Cold Intolerance, Other Endocrine Sx Musculoskeletal: Denies: Neck Pain, Back Pain, Shoulder Pain, Arm Pain, Hand Pain, Leg Pain, Foot Pain, Joint Pain, Muscle Pain, Spasms, Other Symptoms Neurological: Denies: Weakness, Numbness, Incoordination, Change in speech, Confusion, Seizures, Other Symptoms Psych: Denies: Mood Normal, Anxiety, Depression, Memory Issues, Thoughts of Self Harm, Anger, Thoughts of Harming Other, Other Psych Objective Physical Examination General Exam: Positive: No Acute Distress Eye Exam: Positive: PERRLA ENT Exam: Positive: Atraumatic Neck Exam: Positive: Supple; Negative: JVD, thyromegaly, +2 carotid pulse wo bruit, Lymphadenopathy, Other Chest Exam: Positive: Clear to auscultation, Normal air movement Heart Exam: Positive: Rate Normal, Regular Rhythm, Normal S1, Normal S2 Abdomen Exam: Positive: Normal bowel sounds, Soft Extremity Exam: Positive: Normal pulses; Negative: Edema Skin Exam: Positive: Nl turgor and temperature; Negative: Rash Assessment /Plan Problems (1) Altered mental status Status: Resolved Problem Text: Patient was extubated today after weaning of propofol and Precedex He is alert, awake, oriented 3, very cooperative His girlfriend is supposed to see him very soon I discussed with , from psychiatry. He will evaluate the patient relates assessed discharge to send him home, patient has a history of mood disorder. As per patient, he is not sure what substance. He took, but he used some kind of illicit drugs including alcohol Medically he is stable. Once he is cleared from psych that he can be discharged home Discussed with social worker school, [employer], arrangements are in progress for discharge him with his girlfriend, once he is deemed not risks to himself or community. , Proventil when necessary for possible ET tube induced irritation Plan/VTE VTE Prophylaxis Ordered?: No VTE Exclusion Mechanical Proph: Low Risk for VTE VTE Exclusion Pharmacological: At Low Risk for VTE VS, I&O, 24H, Fishbone Vital Signs/I&O Vital Signs Date Time Temp Pulse Resp B/P (MAP) Pulse Ox O2 Delivery O2 Flow Rate FiO2 07/28/18 08:29 99 07/28/18 08:27 20 100 30 07/28/18 06:00 122/70 (87) 07/28/18 04:00 98.4 07/28/18 00:50 Ventilator I&O- Last 24 Hours up to 6 AM 07/28/18 05:59 Intake Total 3134.1 ml Output Total 2810 ml Balance 324.1 ml Laboratory Data 24H LABS Laboratory Tests 2 07/27/18 17:52: Bedside Glucose (Misc Panel) 130H 07/28/18 00:29: Bedside Glucose (Misc Panel) 101 07/28/18 05:48: Bedside Glucose (Misc Panel) 118H OFELIA PATTERSON MD July 28, 2018 13:22
[2018-07-29 04:00] VITALS: BP 141/78
[2018-07-29] MEDS: IPRATROPIUM 0.5MG/ALBUTEROL 2.5MG INH SOL UD 3ML (DUONEB)(J7620) NEB SCH ×4 (04:00→15:30)
[2018-07-29 06:00] VITALS: BP 132/76
[2018-07-29 08:38] VITALS: BP 133/75
[2018-07-29 09:00] VITALS: BP 133/75
[2018-07-29] MEDS ORDERED: NICOTINE 14 MG/24 HR TRANSDERMAL TD SCH (09:00)
[2018-07-29] MEDS: PANTOPRAZOLE 40MG INJ (PROTONIX) (C9113) IV SCH (09:02)
[2018-07-29] MEDS: MULTIVITAMINS/MINERALS THERAP 1 TAB PO SCH (09:02)
[2018-07-29] MEDS: FOLIC ACID 1 MG TAB PO SCH (09:02)
[2018-07-29] MEDS: THIAMINE 100 MG TAB PO SCH (09:02)
[2018-07-29] MEDS: ENOXAPARIN 40 MG/0.4 ML SYRINGE (J1650) SC SCH (09:07)
--- NOTE | 2018-07-29 09:17 | DS.PDOC ---
Discharge Summary General Date of Admission July 27, 2018 at 01:19 Date of Discharge 07/29/2018 Attending Physician: OFELIA PATTERSON MD Discharge Summary PROCEDURES PERFORMED DURING STAY: None. ADMITTING DIAGNOSES: 1. Mood disorder, agitation, intubated to protect airway. Polysubstance abuse. DISCHARGE DIAGNOSES: 1. Mood disorder, status post extubation, alcohol and polysubstance abuse COMPLICATIONS/CHIEF COMPLAINT: Alcohol Intoxication. HISTORY OF PRESENT ILLNESS: Mr. Grajeda is a 27 years old man who was admitted last year to psychiatric unit for depression and self-inflicted physical injury; discharge diagnosis was Mood Disorder with Psychosis. Pt was brought to ER today for irrational and aggressive behavior after police were called for attempted burglary. He had to be physically restrained and treated with IV Ativan, Benadryl and Haldol before he could calm down.. HOSPITAL COURSE: [Patient was admitted to ICU secondary to his agitation. Respiratory distress secondary to polysubstance abuse and alcohol abuse. Patient was intubated to protect his airway secondary to possible respiratory distress secondary to agitation secondary to drug abuse and alcohol abuse. Patient was also sedated with Precedex and propofol. Memory was called for the consultation and once patient is stabilized, he was extubated yesterday without any problems in the sedating drugs would discontinue. Patient transferred to medical floor with surveillance monitor is clinically stable, was seen by Dr. Santo from psychiatry and will possible need inpatient psych admission.. He will be discharged to inpatient mental health unit today for further psychiatric care DISCHARGE MEDICATIONS: Please see below. ALLERGIES: Please see below. PHYSICAL EXAMINATION ON DISCHARGE: VITAL SIGNS: Please see below. GENERAL: Within normal limits HEENT: PERRLA NECK: Supple CARDIOVASCULAR EXAMINATION: S1, S2, regular RESPIRATORY EXAMINATION: Clear to A&P ABDOMINAL EXAMINATION: Benign EXTREMITIES: No clubbing, cyanosis, edema SKIN: Within normal limits NEUROLOGICAL EXAMINATION: . No focal motor sensory deficit PSYCHIATRIC EXAMINATION: , Cooperative, alert, oriented 3 LABORATORY DATA: Please see below. IMAGING: As per EMR PROGNOSIS: Poor ACTIVITY: As tolerated. DIET: , Regular DISCHARGE PLAN: Discharge to medical inpatient unit DISPOSITION: . [facility] DISCHARGE INSTRUCTIONS: 1. As above. ITEMS TO FOLLOWUP ON ON OUTPATIENT: 1. As above. DISCHARGE CONDITION: Stable. TIME SPENT ON DISCHARGE: 25 minutes. Vital Signs/I&Os Vital Signs Date Time Temp Pulse Resp B/P (MAP) Pulse Ox O2 Delivery O2 Flow Rate FiO2 07/29/18 08:38 98.2 94 15 133/75 (94) 97 07/28/18 10:00 30 07/28/18 00:50 Ventilator I&O- Last 24 Hours up to 6 AM 07/29/18 06:00 Intake Total 2157.55 ml Output Total 400 ml Balance 1757.55 ml Discharge Medications No Active Prescriptions or Reported Meds Allergies Coded Allergies: No Known Allergies (Unverified , 02/25/17) OFELIA PATTERSON MD Jul 29, 2018 09:17
[2018-07-29] MEDS ORDERED: FOLI1TAB11 PO (10:26)
[2018-07-29] MEDS ORDERED: NICO14PA TD (10:26)
[2018-07-29] MEDS ORDERED: VITMTA PO (10:26)
[2018-07-29] MEDS ORDERED: THIA100TA PO (10:26)
--- NOTE | 2018-07-29 11:17 | CR ---
DATE OF CONSULTATION: 07/28/2018 VITAL SIGNS: Blood pressure 135/68, pulse is 107, temperature 100.4. CHIEF COMPLAINT: He says he is doing okay. SUBJECTIVE: He is 27 years old, lives with his girlfriend, Amelia Rader, who is at the bedside, and who I spoke with separately, later on, with the patient's permission. The patient was seen alone essentially. He was not able to provide much history, as he says he does not remember much as to what happened recently, so the bulk of the history is obtained from the record as well as the patient's girlfriend. He says he was at home, remembers leaving to go get groceries a couple of days ago and that he had then fallen. He says he remembers the fall, does not remember coming here, but does remember leaving the emergency room, then being brought back, but does not remember much after that. Says had taken one beer before he had left home, suspects he had fallen because of that. The record suggests that he had been seen to be quite agitated, intrusive, going into other people's property, attempting to get things from there, apparently had taken things from a hardware store, without their permission, and police were called eventually. He was brought here, was confused and agitated, and then left without essentially being seen. There were concerns regarding his state, he was brought back by police, he was quite agitated and aggressive, confused, and intubated. He was extubated earlier today, and I was called by Dr. Castillo, from the Department of Medicine, to come in and see him and make an assessment, given his state. The patient has a history of psychiatric difficulties, has been admitted on at least a couple of occasions, most recently just over a year ago, some of the previous discharge summaries are reviewed, was seen by Dr. Triplett, this was last year, and also by Dr. Bey, he was seen by him in 2011. The history from the past includes concerns regarding psychosis, agitation, and these required interventions including restraints on several occasions in the past. Has not been adherent to treatment recommendations. He says he did not followup after his last hospitalization here, as he did not think he needed to and was doing fine. 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 Says it is to help with pain as well, says has had pain in the left shoulder, says that has been an ongoing matter over the last couple of years. Denies he has been suicidal, denies any drug use other than taking a beer, and says has not had any cannabis for awhile. It should be noted the urine toxicology was positive for cannabinoids, but for nothing else. Says he and his girlfriend get along well, they have been living together for the last couple of years. He says his sleep has been okay, but that when depressed, tends to go down. Acknowledges feeling somewhat depressed, as well as anxious lately, says also lost quite a bit of weight (girlfriend suggests about 20 pounds) in the last couple of months. He says he is not quite sure why the weight loss. Collateral information from girlfriend suggests that he has not been doing well for the past several weeks, possibly couple of months, and she has noticed his being more depressed, as well as irritable, and moods fluctuating. Says she has been concerned, has asked him to seek help as well, says does not like hospitals, or medicines, and tends not to stay. She has also noticed lately, over the last several days, he has become increasingly angry and agitated to the point where he trashed the house a few days ago, had been breaking things prior to that. She says he has not been sleeping well, appetite has gone down. She says this is different from his usual demeanor and functioning. She feels he last did well about 2 months or so ago. She says he had left the house the other day, and she went looking for him, did not see him, later found him several hours later, and she says he was confused and looked "high." She said she suspected he had been using methamphetamines; he denied it. She says he wanted her to take him to a store to return things that he had taken from, she declined, she left, says was informed that he was brought here. She says he had destroyed quite a bit of the place a few days earlier. Also indicates has been convinced that some of her dogs laugh at him, says behaves towards one of them as if the dog is human, he gets quite angry with the dog. Moods have been fluctuant, and she has been concerned lately. Says avoids going home at times, as is afraid as to what might happen. She says they broke up possibly a couple of weeks or so ago, mostly over his anger and agitation. She says he did complete rehab more than a year ago. He says it was at [facility]. She has attempted getting him into psychiatric care, but without success. Says he has not been working much but that when he does, he does better. Also suggests that when he uses cannabis he does considerably better, and she has been in the process of helping him to get a medical marijuana card. She thinks he has not had much in terms of cannabis for the last couple of weeks or so. PAST PSYCHIATRIC HISTORY: As indicated above, has had previous hospitalizations, previous periods of aggression and agitation, has come in with an altered mental status. He tends not to followup with outpatient care. MEDICAL HISTORY: Essentially unknown other than history of substance abuse. ALLERGIES: No known drug allergies. SUBSTANCE ABUSE HISTORY: As indicated above, has a long history of misuse of substances, including methamphetamines, per the girlfriend, which she says has been the drug of choice, cannabis which he uses regularly. Has attended outpatient care, as well as substance abuse treatment with varying success. SOCIAL HISTORY: He and his girlfriend live together. They have been together for the last couple of years. He has his father nearby, periodic contact, and not much with anybody else. 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 He was in [facility]pc last year, unclear why, and was on probation for a bit and then that stopped. MENTAL STATUS EXAM: He is lying in bed in his hospital clothes, cooperative, mildly fidgety, no overt agitation as such, no psychomotor retardation, answered questions briefly, logically, coherently with a restricted but reactive affect but he affected turned into anger fairly quickly later on, when I informed him of my assessment and recommendations, he became quite angry. He then, at that point, asked me to leave. Denies any suicidal thoughts or intent. Denies any homicidal ideas or intent. Does not appear to be internally preoccupied. No overt delusions are elicited at this point, and no fluctuation of consciousness as such. He is alert, oriented to place, not fully to time, but was relatively easily reoriented, could spell the word house forwards but not backwards, could do three digit span forwards and backwards, could recall two out of three objects after 5 minutes. Intellect is average. Judgment is compromised, as is insight. 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 Cannabis use disorder. Methamphetamine use disorder. Rule out substance abuse psychotic disorder. It should be noted, has had various diagnoses in the past, but they have tended to include an element of psychosis. Has a history of mood fluctuations and psychosis, not in treatment at present, has been agitated, angry, aggressive, with ideas of reference, thinks girlfriend's dogs laugh at him, and he is quite angry with one of them, has trashed the house, has apparently taken things from a store without permission, has been intrusive, and has lost about 20 pounds in the last 2 months or so. He has been using cannabis, possibly methamphetamines (though not present on urine toxicology) and increasingly irritable over the last few weeks. Judgment and insight are quite compromised. He remains at risk of harming himself, and others, including inadvertently. His girlfriend provides collateral information, which is quite different from his own observations, and she is quite concerned regarding his ability to maintain his safety, and that of others as well, as he has been destroying things in the house. RECOMMENDATIONS: He needs inpatient psychiatric hospitalization for further management and stabilization, but only when he is fully medically stable. He meets criteria for involuntary hospitalization. The DCS application has been made. When he was informed of the recommendations, and my assessment, he became quite angry, asked me to leave, initially quietly, then got up, walked around, wanted to leave. He was persuaded to go back to his room by two nurses, he wanted to see his girlfriend, and I went and called her from the waiting room. He is also aware that he is being hospitalized involuntarily. Thank you for the consult. If there are any questions, please call. The assessment took 60 minutes.
[2018-07-29 14:00] VITALS: BP 136/86
== END 2018-07-29 16:30 | DRG 775 ==
LOC: M ED 16:00 → M ED INP 20:42 → OBSVTOIN 07-27 01:19 → M ICU 07-27 02:12 → M MS5PR 07-28 18:23
PROVIDERS: ADMIT Internal Medicine; ATTEND Internal Medicine
PROC: 5A1945Z Respiratory Ventilation, 24-96 Consecutive Hours (ICD-10-PCS; principal; 2018-07-27)
DX: F10.121 Alcohol abuse with intoxication delirium (principal); R00.0 Tachycardia, unspecified; R06.03 Acute respiratory distress; M25.512 Pain in left shoulder; R63.4 Abnormal weight loss; F29 Unspecified psychosis not due to a substance or known physiological condition; F12.159 Cannabis abuse with psychotic disorder, unspecified; F15.159 Other stimulant abuse with stimulant-induced psychotic disorder, unspecified

== ENCOUNTER 2018-07-29 15:30 | Inpatient (IN) | payer MEDICAID, SELFPAY ==
[~2018-07-29] VITALS: Ht 188 cm; Wt 80.9 kg
[~2018-07-29 15:30] MED LIST changes: +FOLI1TAB11 PO; +NICO14PA TD; +THIA100TA PO; +VITMTA PO
[2018-07-29] MEDS ORDERED: MOM 30ML SUSPENSION UDC PO PRN (16:00)
[2018-07-29] MEDS ORDERED: OLANZapine ORAL DISINTEGRATING TAB 5MG PO PRN (16:00)
[2018-07-29] MEDS ORDERED: ACETAMINOPHEN TAB 650MG DOSE (2X325MG) PO PRN (16:00)
[2018-07-29 16:35] VITALS: BP 135/100
[2018-07-29] MEDS ORDERED: IBUPROFEN 600 MG TAB PO PRN (18:30)
[2018-07-29] MEDS: traZODone 50 MG TAB PO PRN (20:39)
[2018-07-30 06:41] VITALS: BP 107/62
[2018-07-30] MEDS: NICOTINE 7 MG/24 HR TRANSDERMAL TD SCH (07:59)
--- NOTE | 2018-07-30 09:17 | HPEPDOC ---
General Date of Admission Jul 29, 2018 at 16:26 Date of Service: Jul 30, 2018 Attending Physician: OFELIA PATTERSON MD Chief Complaint The patient is a 27-year-old male admitted with a reason for visit of Other Specified Schizophrenia Spectrum. History of Present Illness Patient is a 27 year old male discharged yesterday from the medical unit post intubation/extubation. Patient was escorted to ED in handcuffs accompanied by 3 officiers after he had been found causing disturbance. On admit he was very combative, with positive alcohol level and positive drug screen. He was sedated and intubated for airway protection and management in ICU. During hospitalization was evaluated by psychiatrist and deemed appropriate for further management in the psych unit. Post extubation he was discharged to inpatient psychiatric unit. Today medical team is following and monitoring to manage any medical needs which may arise in the course of hospitalization On assessment he complains of right lower tooth ache, patient apparently seft ex tracted his tooth due to unbearable pain. He denies chills, fever, nausea. Home Medications Scheduled Folic Acid (Folic Acid) 1 Mg Tablet, 1 MG PO DAILY Multivitamins (Thera M Plus Tablet) 1 Each Tablet, 1 TAB PO DAILY Nicotine (Nicotine Patch) 14 Mg Patch.td24, 1 PATCH TD DAILY Thiamine Hcl (Vitamin B-1) 100 Mg Tablet, 100 MG PO BID Allergies Coded Allergies: No Known Allergies (Unverified , 02/25/17) Past Medical History Medical History Depression Nicotine dependence Alcohol abuse Polysubstance abuse Surgical History Denies Family History Denies any significant family medical history Social History Smokes 2 packs of cigarettes per day, states he doesn't really drink alcohol heavily, admits to THC use, and meth in the past A-FIB/CHADSVASC A-FIB History Current/History of A-Fib/PAF?: No Current PO Anticoag Therapy: No Review of Systems Other systems A 10 point pertinent review of systems was completed, negative except as stated in the history of presenting illness. Physical Examination Other physical findings GENERAL: NAD SKIN : Warm, dry intact HEENT: Atraumatic, normocephalic, PERRL, broken right lower molar, site of recently extracted tooth is seen, moist mucous membrane CARDIOVASCULAR: Regular rate and rhythm, S1S2, no JVD, no edema, distal pulses + and palpable RESP: CTAB, no accessory muscle use noted ABDOMEN: BS+ non distended non tender MS: no joint deformities NEURO: Alert and oriented x 3, CN2-12 grossly intact PSYCH: no anxiety or agitation, appropriate mood and affect. Vital Signs Vital Signs Date Time Temp Pulse Resp B/P (MAP) Pulse Ox O2 Delivery O2 Flow Rate FiO2 07/30/18 06:41 100.6 91 16 107/62 (77) 07/29/18 16:35 98 Assessment/Plan Toothache with gingivitis -febrile this am with temp 100.6 -start on antibiotic therapy -xray of right mandible to evaluate for for abscess Right wrist abrasion -from falling on the ground when patient was altered and combative -neosporin ointment and open to air Transaminitis -etiology multifactorial, ? drug use -monitor DVT prophylaxis -frequently ambulatory and no indication for anticoagulation at this time Nicotine dependence/Acute Psychosis/Mood disturbance -management by primary team Plan / VTE VTE Prophylaxis Ordered?: No VTE Exclusion Mechanical Proph: Low Risk for VTE SUSAN PRESTONP Jul 30, 2018 09:17
[2018-07-30] MEDS: AUGMENTIN 875 MG TAB PO SCH ×2 (13:07→20:13)
[2018-07-30] MEDS: IBUPROFEN 800 MG TAB PO SCH ×2 (13:10→20:36)
--- NOTE | 2018-07-30 13:25 | REP ---
Clinical: Right jaw and tooth pain. Technique: AP, blackman, bilateral oblique views of the mandible. Findings: Mandible including temporomandibular joints are intact and normal. Impression: Normal examination. Electronically Signed by Erasmo Pitts MD 07/30/2018 01:16 P
[2018-07-30] MEDS: NEOSPORIN TOP OINT 15GM TOP SCH ×2 (15:56→20:14)
[2018-07-30 18:07] VITALS: BP 139/63
[2018-07-30] MEDS: traZODone 50 MG TAB PO PRN (20:12)
[2018-07-30] MEDS: PANTOPRAZOLE 40MG TAB (PROTONIX) PO SCH (20:12)
[2018-07-30] MEDS: QUEtiapine FUMARATE 25 MG TAB PO SCH (20:13)
[2018-07-31] MEDS: IBUPROFEN 800 MG TAB PO SCH ×3 (06:06→20:23)
[2018-07-31 07:00] VITALS: BP 154/64
--- NOTE | 2018-07-31 08:06 | MHHPE ---
DATE OF ADMISSION: 07/29/2018 CHIEF COMPLAINT: Feels better. SUBJECTIVE: He is 27 years old. He lives with his girlfriend, Amelia. He has been admitted from the intensive care unit (ICU) where I saw him a couple of days ago in consultation, please refer to my consult summary for details related to the circumstances of his admission, past history, as well as mental status examination at the time of admission and reason for his hospitalization. PROVISIONAL DIAGNOSES: 1. Other specified schizophrenia spectrum and other psychotic disorder. 2. Cannabis use disorder, as well as methamphetamine use disorder. He says that he feels more rested and that he had a good night. He remembers me from seeing him a couple of days ago, though he is a bit vague on that. He also indicates that he had snorted a line of "Mary Lou" about a week or so prior to his hospitalization, and that he had taken a bit more alcohol than he had suggested. He does not think that he took any methamphetamine or any other drugs. He says that he has wanted to get away from using drugs and that he has thought of getting a "cannabis card." Acknowledges periods of irritability and difficulties with impulses at times. He denies hearing any voices or any visual perceptual disturbance. He says is concerned about getting things done at home. Says tends to repair things there and the landlord lets him do that in exchange for staying there to some extent. He says has a house inspection coming up. MENTAL STATUS EXAMINATION: He is neat. He is cooperative. He displays no agitation at present. No psychomotor retardation. He apologizes for his irritability and I informed him that there was no need to do so, referring to a couple of days ago. He has a fairly broad affect. At times he gets mildly fidgety. He denies any suicidal thoughts or intents. He currently denies any homicidal ideas or intents. He does not appear to be internally preoccupied. He is alert. He is oriented. Intellect average. No paranoid ideations elicited. Judgment and insight remain compromised but somewhat improved from the other day. VITAL SIGNS: Blood pressure 136/86, pulse 107, temperature 97.2. ASSESSMENT: 1. Other specified schizophrenia spectrum and other psychotic disorder. 2. Cannabis use disorder. 3. Methamphetamine use disorder. 4. 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 As noted previously, diagnoses in the past have tended to include an element of psychosis. He appears calmer than when seen a couple of days ago, more amenable to conversation, possibly with slightly better insight. PLAN: He is admitted to the inpatient psychiatry unit. I would suggest looking at obtaining collateral information further. I had spoken with his girlfriend, please refer to the previous summary. He will receive a medicine consultation if indicated. After discussion of the risks, benefits, drawbacks and alternatives, which he understands, he is started on Seroquel at 25 mg at night and to be titrated up as tolerated to help with moods, periods of psychosis, symptoms of psychosis as well, and the sedation may help with sleep. He should be encouraged to participate in activities in the unit. He is to see the treatment team and the psychiatrist tomorrow and further recommendations will be made depending on the clinical picture. I would anticipate a 5 to 7 day stay.
[2018-07-31] MEDS: NICOTINE 7 MG/24 HR TRANSDERMAL TD SCH (09:00)
[2018-07-31] MEDS: AUGMENTIN 875 MG TAB PO SCH ×2 (09:58→20:22)
[2018-07-31] MEDS: NEOSPORIN TOP OINT 15GM TOP SCH ×2 (09:58→20:22)
--- NOTE | 2018-07-31 10:16 | MHIPNPDOC ---
[facility] Progress Note Progress Note DATE OF SERVICE: 07/31/18 HISTORY: Per Dr. Santo: "He is 27 years old. He lives with his girlfriend, Amelia. He has been admitted from the intensive care unit (ICU) where I saw him a couple of days ago in consultation, please refer to my consult summary for details related to the circumstances of his admission, past history, as well as mental status examination at the time of admission and reason for his hospitalization. He says that he feels more rested and that he had a good night. He remembers me from seeing him a couple of days ago, though he is a bit vague on that. He also indicates that he had snorted a line of "Mary Lou" about a week or so prior to his hospitalization, and that he had taken a bit more alcohol than he had suggested. He does not think that he took any methamphetamine or any other drugs. He says that he has wanted to get away from using drugs and that he has thought of getting a "cannabis card." Acknowledges periods of irritability and difficulties with impulses at times. He denies hearing any voices or any visual perceptual disturbance. He says is concerned about getting things done at home. Says tends to repair things there and the landlord lets him do that in exchange for staying there to some extent. He says has a house inspection coming up." VITAL SIGNS: See below. NEW TEST RESULTS: See below. CURRENT MEDICATIONS: See below. MENTAL STATUS EXAMINATION: He is neat. He is cooperative. He displays no agitation at present. No psychomotor retardation. He has a broad affect. He denies any suicidal thoughts or intents. He currently denies any homicidal ideas or intents. He does not appear to be internally preoccupied. He is alert. He is oriented. Intellect average. No paranoid ideations elicited. Judgment and insight are good. DIAGNOSES: 1. Substance induced psychosis 2. Cannabis use disorder 3. methamphetamine use disorder. ASSESSMENT::Pt seen and states that his mood and psychotic thoughts are better. States he slept well last night. Feels he is tolerating his medications and they're beneficial. He is attending groups and finding them helpful. He denies SI/HI, hallucinations, delusions. Pt feels safe here. MANAGEMENT PLAN: d/c planning for tomorrow ZyPREXA ZYDIS 5 mg Q4HP PRN PO ANXIETY/AGITATION SEROquel 25 mg QHS Trazodone 50 mg QHSP PRN PO INSOMNIA TIME SPENT: 30 minutes. Vital Signs Vital Signs Date Time Temp Pulse Resp B/P (MAP) Pulse Ox O2 Delivery O2 Flow Rate FiO2 07/31/18 07:00 99.3 80 14 154/64 (94) 07/29/18 16:35 98 Current Medications Current Medications Acetaminophen (Tylenol Tab) 650 mg Q6HP PRN PO HEADACHE or DISCOMFORT; Start 07/29/18 at 16:00; Status Cancel Amoxicillin/ Clavulanate Potassium (Augmentin) 875 mg BID PO Last administered on 07/31/18 09:58; Start 07/30/18 at 09:00 Ibuprofen (Advil) 600 mg Q6HP PRN PO MODERATE PAIN (PS 5-7) Last administered on 07/30/18 08:36; Start 07/29/18 at 18:30; Stop 07/30/18 at 12:25; Status DC Ibuprofen (Advil) 800 mg Q8H PO Last administered on 07/31/18at 06:06; Start 07/30/18 at 14:00 Magnesium Hydroxide (Milk Of Magnesia) 30 ml DAILYPRN PRN PO CONSTIPATION; Start 07/29/18 at 16:00 Neomycin/ Polymyxin/ Bacitracin (Neosporin) TO RIGHT WRIST ABRASION BID TOP L ast administered on 07/31/18 09:58; Start 07/30/18 at 09:00 Nicotine (Nicoderm Cq 7 Mg) 1 patch DAILY TD ; Start 07/30/18 at 09:00 Olanzapine (ZyPREXA ZYDIS) 5 mg Q4HP PRN PO ANXIETY/AGITATION Last administered on 07/30/18 08:00; Start 07/29/18 at 16:00 Pantoprazole Sodium (Protonix) 40 mg QHS PO Last administered on 07/30/18 20:12; Start 07/30/18 at 21:00 Quetiapine Fumarate (SEROquel) 25 mg QHS PO Last administered on 07/30/18 20:13; Start 07/30/18 at 21:00 Trazodone HCl (Desyrel) 50 mg QHSP PRN PO INSOMNIA Last administered on 6/2/19at 20:12; Start 07/29/18 at 16:00 Allergies Coded Allergies: No Known Allergies (Unverified , 02/25/17) CELSO MSITH DO Jul 31, 2018 10:16 am
--- NOTE | 2018-07-31 12:16 | IPNPDOC ---
Subjective Date Seen The patient was seen on 07/31/18. Subjective Chief Complaint/HPI 27-year-old male, admitted with depression, suicidal ideation, aggressive behavior. Events since last encounter Followed by medical team for toothache and possible oral infection after self tooth extraction. This morning, complains of continued back pain, minimally improved. Has been taking ibuprofen and antibiotic. Denies chills, shakiness, nausea, vomiting. Objective Physical Examination Other physical findings GENERAL: NAD SKIN : Warm, dry intact HEENT: Atraumatic, normocephalic, PERRL, broken right lower molar, site of recently extracted tooth is seen, moist mucous membrane CARDIOVASCULAR: Regular rate and rhythm, S1S2, no JVD, no edema, distal pulses + and palpable RESP: CTAB, no accessory muscle use noted ABDOMEN: BS+ non distended non tender MS: no joint deformities NEURO: Alert and oriented x 3, CN2-12 grossly intact PSYCH: no anxiety or agitation, appropriate mood and affect. Assessment /Plan Assessment Toothache -continue antibiotic therapy with Ibuprofen -continue PPi -referral to oral surgeon at discharge due to tooth fragmentation during extraction Plan/VTE VTE Prophylaxis Ordered?: No VTE Exclusion Mechanical Proph: Low Risk for VTE VS, I&O, 24H, Fishbone Vital Signs/I&O Vital Signs Date Time Temp Pulse Resp B/P (MAP) Pulse Ox O2 Delivery O2 Flow Rate FiO2 07/31/18 07:00 99.3 80 14 154/64 (94) 07/29/18 16:35 98 SUSAN PRESTONP Jul 31, 2018 12:16
[2018-07-31] MEDS: MAGIC MOUTHWASH SUSPENSION BTL SSP SCH ×2 (13:43→17:00)
[2018-07-31 18:33] VITALS: BP 126/65
[2018-07-31] MEDS: PANTOPRAZOLE 40MG TAB (PROTONIX) PO SCH (20:23)
[2018-07-31] MEDS: QUEtiapine FUMARATE 25 MG TAB PO SCH (20:23)
[2018-07-31] MEDS: traZODone 50 MG TAB PO PRN (20:24)
[2018-08-01] MEDS: IBUPROFEN 800 MG TAB PO SCH (05:45)
[2018-08-01 06:38] VITALS: BP 134/74
[2018-08-01] MEDS: MAGIC MOUTHWASH SUSPENSION BTL SSP SCH (07:49)
[2018-08-01] MEDS ORDERED: TRAZ1TAB10 PO (08:42)
[2018-08-01] MEDS ORDERED: QUET1TAB7 PO (08:42)
--- NOTE | 2018-08-01 08:43 | MHDSPDOC ---
[facility] Discharge Summary Discharge Summary DATE OF ADMISSION: Jul 29, 2018 at 4:26 pm DATE OF DISCHARGE: August 01, 2018 DISCHARGE DIAGNOSES: 1. Substance induced psychosis 2. Cannabis use disorder 3. methamphetamine use disorder. REASON FOR ADMISSION: Per Dr. Santo: "He is 27 years old. He lives with his girlfriend, Amelia. He has been admitted from the intensive care unit (ICU) where I saw him a couple of days ago in consultation, please refer to my consult summary for details related to the circumstances of his admission, past history, as well as mental status examination at the time of admission and reason for his hospitalization. He says that he feels more rested and that he had a good night. He remembers me from seeing him a couple of days ago, though he is a bit vague on that. He also indicates that he had snorted a line of "Mary Lou" about a week or so prior to his hospitalization, and that he had taken a bit more alcohol than he had suggested. He does not think that he took any methamphetamine or any other drugs. He says that he has wanted to get away from using drugs and that he has thought of getting a "cannabis card." Acknowledges periods of irritability and difficulties with impulses at times. He denies hearing any voices or any visual perceptual disturbance. He says is concerned about getting things done at home. Says tends to repair things there and the landlord lets him do that in exchange for staying there to some extent. He says has a house inspection coming up." CONSULTANTS INVOLVED: none TREATMENT AND PROGRESS ON THE UNIT : Pt was admitted to [facility], seen for psychiatric assessment and started on seroquel 25mg qhs for psychosis. He was provided trazodone 50mg qhs prn insomnia. Pt found his medications beneficial and tolerated them well. He attended groups daily during his stay. His symptoms improved with treatment. On day of discharge he denied depression, anxiety, insomnia, SI/HI, hallucinations, delusions. He was discharged home with follow-up at [facility]. He felt safe for discharge. DISCHARGE ASSESSMENT: Pt seen and states that his mood is good and denies any psychotic thoughts. He does not appear psychotic. States he slept well last night. Feels he is tolerating his medications and they're beneficial. He is attending groups and finding them helpful. He denies depression, anxiety insomnia, SI/HI, hallucinations, delusions. Pt feels safe here. MENTAL STATUS EXAMINATION ON DISCHARGE: He is neat. He is cooperative. He displays no agitation at present. No psychomotor retardation. He has a broad affect that is euthymic and bright. He denies any suicidal thoughts or intents. He currently denies any homicidal ideas or intents. He does not appear to be internally preoccupied or psychotic. He is alert. He is oriented. Intellect average. No paranoid ideations elicited. Judgment and insight are good. MEDICATIONS ON DISCHARGE: SEROquel 25 mg QHS Trazodone 50 mg QHSP PRN PO INSOMNIA PLAN/FOLLOWUP ARRANGEMENTS: D/c home with follow-up at [facility]. The amount of time spent in the coordination of care for this patient was approximately 30 minutes. Vital Signs/I&Os Vital Signs Date Time Temp Pulse Resp B/P (MAP) Pulse Ox O2 Delivery O2 Flow Rate FiO2 08/01/18 06:38 99.2 87 14 134/74 (94) 07/29/18 16:35 98 Medications Scheduled Folic Acid (Folic Acid) 1 Mg Tablet, 1 MG PO DAILY, #30 Multivitamins (Thera M Plus Tablet) 1 Each Tablet, 1 TAB PO DAILY, #30 Nicotine (Nicotine Patch) 14 Mg Patch.td24, 1 PATCH TD DAILY, #14 Thiamine Hcl (Vitamin B-1) 100 Mg Tablet, 100 MG PO BID, #30 Allergies Coded Allergies: No Known Allergies (Unverified , 02/25/17) CELSO SMITH DO Aug 01, 2018 8:43 am
[2018-08-01] MEDS: NICOTINE 7 MG/24 HR TRANSDERMAL TD SCH (09:00)
[2018-08-01] MEDS: NEOSPORIN TOP OINT 15GM TOP SCH (09:20)
[2018-08-01] MEDS: AUGMENTIN 875 MG TAB PO SCH (09:20)
[2018-08-02] MEDS ORDERED: AUGM875T28 PO (09:10)
== END 2018-08-01 10:40 | disposition home or self-care (01) | DRG 775 ==
LOC: M PSY 16:26
PROVIDERS: ADMIT Psychiatry & Neurology Psychiatry; ATTEND Psychiatry & Neurology Psychiatry
DX: F12.159 Cannabis abuse with psychotic disorder, unspecified (principal); F10.10 Alcohol abuse, uncomplicated; F15.159 Other stimulant abuse with stimulant-induced psychotic disorder, unspecified; F17.210 Nicotine dependence, cigarettes, uncomplicated; K05.01 Acute gingivitis, non-plaque induced; R74.0 Nonspecific elevation of levels of transaminase and lactic acid dehydrogenase [LDH]; Z79.899 Other long term (current) drug therapy

== ENCOUNTER 2019-07-14 15:21 | Emergency (ER) | payer MEDICAID, SELFPAY ==
[~2019-07-14] VITALS: Ht 188 cm; Wt 85.8 kg
[2019-07-14 15:21] VITALS: BP 153/85
[~2019-07-14 15:21] MED LIST changes: +AUGM875T28 PO; +QUET1TAB7 PO; +TRAZ1TAB10 PO
[2019-07-14] MEDS ORDERED: ACET-683 PO (15:30)
[2019-07-14] MEDS ORDERED: PENI500T PO (15:45)
[2019-07-14] MEDS ORDERED: LIDOCAINE VISCOUS 2% SOLN 15ML UDC SSP ONE (15:45)
[2019-07-14] MEDS ORDERED: LIDO2SOL17 PO (15:45)
[2019-07-14] MEDS ORDERED: PENICILLIN V POTASSIUM 500 MG TAB PO ONE (15:45)
== END 2019-07-14 15:50 | disposition home or self-care (01) ==
LOC: M ED 15:21
DX: K08.89 Other specified disorders of teeth and supporting structures (principal); F17.218 Nicotine dependence, cigarettes, with other nicotine-induced disorders

== ENCOUNTER 2019-09-10 12:11 | Emergency (ER) | payer OTHER, SELFPAY ==
[~2019-09-10] VITALS: Ht 180.3 cm; Wt 86.3 kg
[~2019-09-10 12:11] MED LIST changes: +ACET-683 PO; +LIDO2SOL17 PO; +PENI500T PO
[2019-09-10 12:15] VITALS: BP 146/77
--- NOTE | 2019-09-10 16:10 | REP ---
REASON: Shoulder pain. COMPARISON: No priors. FINDINGS: Three views of the left shoulder were performed. The acromioclavicular and glenohumeral relationships are within normal limits. There is no acute fracture or destructive osseous lesions. Electronically Signed by Henrry Brasher DO 09/10/2019 05:14 P
== END 2019-09-10 13:21 | disposition home or self-care (01) ==
LOC: M ED 12:11
DX: S43.005A Unspecified dislocation of left shoulder joint, initial encounter (principal); X50.0XXA Overexertion from strenuous movement or load, initial encounter; Y92.89 Other specified places as the place of occurrence of the external cause; F41.9 Anxiety disorder, unspecified; F31.9 Bipolar disorder, unspecified; Z86.19 Personal history of other infectious and parasitic diseases

== ENCOUNTER 2019-11-23 15:27 | Emergency (ER) | payer SELFPAY ==
[~2019-11-23] VITALS: Ht 185.4 cm; Wt 85.9 kg
[2019-11-23 15:27] VITALS: BP 148/75
[2019-11-23] MEDS ORDERED: GI COCKTAIL 50ML BTL(HYOSCYAMINE/MAALOX/LIDOCAINE VISCOUS)(1:3:1) PO ONE (16:30)
[2019-11-23] MEDS ORDERED: AUGMENTIN 875 MG TAB PO ONE (16:30)
[2019-11-23 16:33] LABS: BASO # 0.1 10^3/uL (0.0-0.2); BASO % 0.6 % (0.0-1.0); EOS # 0.1 10^3/uL (0.0-0.5); EOS % 1.6 % (0.0-3.0); HEMATOCRIT 44.7 % (42.0-52.0); HEMOGLOBIN 15.8 g/dl (13.5-17.5); LYMPH % 36.3 % (24.0-44.0); MEAN CORPUSCULAR HEMOGLOBIN 31.6 pg (27.0-33.0); MEAN CORPUSCULAR HGB CONC 35.3 g/dl (32.0-36.5); MEAN CORPUSCULAR VOLUME 89.4 fl (80.0-96.0); MONO # 0.6 10^3/uL (0.0-0.8); MONO % 7.5 % (0.0-5.0); NEUTROPHILS # 4.5 10^3/uL (1.5-8.5); NEUTROPHILS % 53.9 % (36.0-66.0); PLATELET COUNT, AUTOMATED 287 10^3/uL (150-450); WHITE BLOOD COUNT 8.3 10^3/uL (4.0-10.0)
[2019-11-23 17:08] LABS: ALBUMIN 4.1 GM/DL (3.2-5.2); ALT/SGPT 197 U/L (12-78); BILIRUBIN,DIRECT 0.2 MG/DL (0.0-0.2); BILIRUBIN,TOTAL 0.7 MG/DL (0.2-1.0); BLOOD UREA NITROGEN 20 MG/DL (7-18); CALCIUM LEVEL 9.6 MG/DL (8.5-10.1); CARBON DIOXIDE LEVEL 26 MEQ/L (21-32); CHLORIDE LEVEL 104 MEQ/L (98-107); CREATININE FOR GFR 0.97 MG/DL (0.70-1.30); GLOMERULAR FILTRATION RATE > 60.0 (>60); GLUCOSE, FASTING 88 MG/DL (70-100); LIPASE 97 U/L (73-393); POTASSIUM SERUM 4.1 MEQ/L (3.5-5.1); SODIUM LEVEL 138 MEQ/L (136-145); TOTAL PROTEIN 7.7 GM/DL (6.4-8.2)
[2019-11-23 17:36] LABS: HEPATITIS B SURFACE ANTIGEN NEGATIVE (NEGATIVE)
[2019-11-23 18:04] LABS: HEPATITIS B CORE ANTIBODY IGM NEGATIVE (NEGATIVE)
[2019-11-23 18:05] LABS: HEPATITIS A ANTIBODY IGM NEGATIVE (NEGATIVE)
[2019-11-23 18:11] LABS: HEPATITIS C VIRUS ABY INDEX > 11.0 INDEX (<0.8)
== END 2019-11-23 17:02 | disposition left against medical advice (07) ==
LOC: M ED 15:27
DX: K08.89 Other specified disorders of teeth and supporting structures (principal); R11.0 Nausea; R51 Headache; B19.20 Unspecified viral hepatitis C without hepatic coma; F17.200 Nicotine dependence, unspecified, uncomplicated; Z88.6 Allergy status to analgesic agent

== ENCOUNTER → 2020-01-17 | Outpatient (REF) | payer OTHER ==
[2020-01-17 17:14] LABS: BASO % 0.7 % (0.0-1.0); EOS # 0.2 10^3/uL (0.0-0.5); EOS % 3.5 % (0.0-3.0); HEMATOCRIT 45.7 % (42.0-52.0); HEMOGLOBIN 15.4 g/dl (13.5-17.5); LYMPH # 2.2 10^3/uL (1.5-5.0); LYMPH % 39.2 % (24.0-44.0); MEAN CORPUSCULAR HEMOGLOBIN 30.9 pg (27.0-33.0); MEAN CORPUSCULAR HGB CONC 33.7 g/dl (32.0-36.5); MEAN CORPUSCULAR VOLUME 91.6 fl (80.0-96.0); MONO # 0.5 10^3/uL (0.0-0.8); MONO % 8.3 % (0.0-5.0); NEUTROPHILS # 2.7 10^3/uL (1.5-8.5); NEUTROPHILS % 48.1 % (36.0-66.0); PLATELET COUNT, AUTOMATED 238 10^3/uL (150-450); RED BLOOD COUNT 4.99 10^6/uL (4.30-6.10); WHITE BLOOD COUNT 5.7 10^3/uL (4.0-10.0)
[2020-01-17 17:41] LABS: ALBUMIN 4.2 GM/DL (3.2-5.2); ALT/SGPT 158 U/L (12-78); BILIRUBIN,TOTAL 0.7 MG/DL (0.2-1.0); BLOOD UREA NITROGEN 18 MG/DL (7-18); CALCIUM LEVEL 9.5 MG/DL (8.5-10.1); CARBON DIOXIDE LEVEL 28 MEQ/L (21-32); CHLORIDE LEVEL 108 MEQ/L (98-107); CREATININE FOR GFR 1.06 MG/DL (0.70-1.30); GLOMERULAR FILTRATION RATE > 60.0 (>60); GLUCOSE, FASTING 81 MG/DL (70-100); POTASSIUM SERUM 4.8 MEQ/L (3.5-5.1); SODIUM LEVEL 139 MEQ/L (136-145); THYROID STIMULATING HORMONE 0.565 uIU/ML (0.358-3.740); TOTAL PROTEIN 7.6 GM/DL (6.4-8.2)
[2020-01-17 17:55] LABS: HIV 1&2 SCREEN CENTAUR NEGATIVE (NEGATIVE)
== END ==
LOC: M LAB REF 16:19
PROVIDERS: ATTEND Physician Assistant
DX: R53.83 Other fatigue (principal); Z11.3 Encounter for screening for infections with a predominantly sexual mode of transmission; Z01.84 Encounter for antibody response examination

== ENCOUNTER → 2020-01-18 | Outpatient (CLI) | payer OTHER ==
--- NOTE | 2020-01-18 13:27 | REP ---
INDICATION: PLEURODYNIA, LBP. COMPARISON: 07/28/2018 a portable exam TECHNIQUE: PA and lateral views FINDINGS: The superior mediastinal structures are midline. The cardiac silhouette is unremarkable in size, shape, and position. The diaphragmatic surfaces of the lungs are regular, and the costophrenic angles are clear. The pulmonary thompson are clear. The imaged osseous structures are intact. IMPRESSION: There is no acute cardiopulmonary disease. <Electronically signed by Henrry Brasher > 01/18/20 [id number]
--- NOTE | 2020-01-18 13:44 | REP ---
INDICATION: PLEURODYNIA, LBP. COMPARISON: None TECHNIQUE: Three views FINDINGS: Three views of the lumbosacral spine show no acute fracture, dislocation, or subluxation. The intervertebral disc spaces are symmetric and well maintained. There is no spondylolysis or spondylolisthesis. The pedicles are intact bilaterally and there is no destructive osseous lesion. IMPRESSION: Essentially unremarkable limited three-view lumbosacral spine series. <Electronically signed by Henrry Brasher > 01/18/20 [id number]
== END ==
LOC: M RAD 12:37
PROVIDERS: ATTEND Physician Assistant
DX: M54.5 Low back pain (principal); R07.81 Pleurodynia

== ENCOUNTER → 2020-02-12 | Outpatient (REF) | payer OTHER ==
[2020-02-14 23:09] LABS: HEPATITIS A IgG TOTAL Positive (Negative); HEPATITIS B CORE ANTIBODY IGG Negative (Negative); HEPATITIS C QUANTITATION 250080 IU/mL (.); HEPATITIS C VIRUS GENOTYPE 3 (.)
== END ==
LOC: M SFHCPLAZ 10:39
PROVIDERS: ATTEND Internal Medicine Infectious Disease
DX: B18.2 Chronic viral hepatitis C (principal)

== ENCOUNTER → 2020-02-27 | Outpatient (CLI) | payer MEDICAID | LOC: M OUTALCOH 07:34 | PROVIDERS: ATTEND Psychiatry & Neurology Addiction Medicine | DX: F15.20 Other stimulant dependence, uncomplicated (principal); F12.20 Cannabis dependence, uncomplicated ==

== ENCOUNTER 2020-04-07 15:22 | Emergency (ER) | payer MEDICAID, OTHER ==
[~2020-04-07] VITALS: Ht 185.4 cm; Wt 8.6 kg
[~2020-04-07 15:22] MED LIST changes: -QUET1TAB7 PO; +QUET25TA3 PO
--- NOTE | 2020-04-07 15:52 | REP ---
INDICATION: CHEST PAIN COMPARISON: 01/18/2020 TECHNIQUE: PA and lateral. FINDINGS: The mediastinum and cardiac silhouette are normal. The lung thompson are clear and without acute consolidation, effusion, or pneumothorax. The skeletal structures are intact and normal. IMPRESSION: No acute cardiopulmonary process. <Electronically signed by Erasmo Pitts > 04/07/20 [id number]
[2020-04-07 16:42] LABS: BASO % 0.6 % (0.0-1.0); EOS # 0.2 10^3/uL (0.0-0.5); EOS % 2.2 % (0.0-3.0); HEMATOCRIT 40.4 % (42.0-52.0); HEMOGLOBIN 14.5 g/dl (13.5-17.5); LYMPH # 3.1 10^3/uL (1.5-5.0); LYMPH % 46.1 % (24.0-44.0); MEAN CORPUSCULAR HEMOGLOBIN 31.7 pg (27.0-33.0); MEAN CORPUSCULAR HGB CONC 35.9 g/dl (32.0-36.5); MEAN CORPUSCULAR VOLUME 88.4 fl (80.0-96.0); MONO # 0.5 10^3/uL (0.0-0.8); MONO % 7.2 % (0.0-5.0); NEUTROPHILS % 43.8 % (36.0-66.0); PLATELET COUNT, AUTOMATED 224 10^3/uL (150-450); RED BLOOD COUNT 4.57 10^6/uL (4.30-6.10); WHITE BLOOD COUNT 6.8 10^3/uL (4.0-10.0)
[2020-04-07 16:59] LABS: INR 1.01; PROTHROMBIN TIME 13.5 SECONDS (12.5-14.3)
[2020-04-07 17:00] LABS: PARTIAL THROMBOPLASTIN TIME 29.2 SECONDS (24.2-38.5)
[2020-04-07] MEDS ORDERED: KETOROLAC 30 MG/ML 1ML VIAL IV ONE (17:00)
[2020-04-07 17:22] LABS: ALBUMIN 4.1 GM/DL (3.2-5.2); ALT/SGPT 20 U/L (12-78); BILIRUBIN,DIRECT 0.1 MG/DL (0.0-0.2); BILIRUBIN,TOTAL 0.4 MG/DL (0.2-1.0); BLOOD UREA NITROGEN 15 MG/DL (7-18); CALCIUM LEVEL 9.7 MG/DL (8.5-10.1); CARBON DIOXIDE LEVEL 25 MEQ/L (21-32); CHLORIDE LEVEL 109 MEQ/L (98-107); CK-MB VALUE MASS < 1.0 NG/ML (<3.6); CPK CREATINE PHOSPHOKINASE 278 U/L (39-308); CREATININE FOR GFR 1.04 MG/DL (0.70-1.30); GLOMERULAR FILTRATION RATE > 60.0 (>60); GLUCOSE, FASTING 104 MG/DL (70-100); MB/CK RELATIVE INDEX 0.36 (< OR =4); SODIUM LEVEL 142 MEQ/L (136-145)
[2020-04-07 17:23] LABS: FREE T4 1.12 NG/DL (0.76-1.46); LIPASE 167 U/L (73-393); TROPONIN I < 0.02 NG/ML (< 0.10)
[2020-04-07 18:32] LABS: D-DIMER QUANT < 270.0 ng/ml (<500)
[2020-04-07 19:04] VITALS: BP 109/53
--- NOTE | 2020-04-08 08:53 | ECGEPIP ---
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
== END 2020-04-07 19:31 | disposition home or self-care (01) ==
LOC: M ED 15:22
DX: R07.89 Other chest pain (principal); F10.10 Alcohol abuse, uncomplicated; F19.10 Other psychoactive substance abuse, uncomplicated; F41.9 Anxiety disorder, unspecified; F31.89 Other bipolar disorder; Z86.19 Personal history of other infectious and parasitic diseases; F17.200 Nicotine dependence, unspecified, uncomplicated; Z88.6 Allergy status to analgesic agent; Z88.8 Allergy status to other drugs, medicaments and biological substances
CPT/HCPCS: 71046; 80048; 80076; 82550; 82553; 83690; 84439; 84443; 85025; 85379; 85610; 85730; 93005; 96374; 99284; J1885

== ENCOUNTER → 2020-04-21 | Outpatient (REF) | payer OTHER ==
[2020-04-21 18:13] LABS: ALBUMIN 4.2 GM/DL (3.2-5.2); BILIRUBIN,DIRECT 0.1 MG/DL (0.0-0.2); BILIRUBIN,TOTAL 0.4 MG/DL (0.2-1.0); TOTAL PROTEIN 7.4 GM/DL (6.4-8.2)
[2020-04-23 23:06] LABS: HEPATITIS C QUANTITATION HCV Not Detected IU/mL (.)
== END ==
LOC: M SFHCPLAZ 15:47
PROVIDERS: ATTEND Internal Medicine Infectious Disease
DX: B18.2 Chronic viral hepatitis C (principal)

== ENCOUNTER 2020-04-23 14:41 | Outpatient (RCR) | payer MEDICAID | END 2020-04-27 | LOC: M OUTALCOH 14:41 | PROVIDERS: ATTEND Psychiatry & Neurology Addiction Medicine | DX: F15.20 Other stimulant dependence, uncomplicated (principal); F12.20 Cannabis dependence, uncomplicated; F17.200 Nicotine dependence, unspecified, uncomplicated ==

== ENCOUNTER → 2020-04-23 | Outpatient (CLI) | payer OTHER ==
[2020-04-23 16:32] LABS: HEMATOCRIT 45.2 % (42.0-52.0); HEMOGLOBIN 15.5 g/dl (13.5-17.5); MEAN CORPUSCULAR HEMOGLOBIN 31.2 pg (27.0-33.0); MEAN CORPUSCULAR HGB CONC 34.3 g/dl (32.0-36.5); MEAN CORPUSCULAR VOLUME 90.9 fl (80.0-96.0); PLATELET COUNT, AUTOMATED 253 10^3/uL (150-450); RED BLOOD COUNT 4.97 10^6/uL (4.30-6.10); WHITE BLOOD COUNT 7.1 10^3/uL (4.0-10.0)
[2020-04-23 16:43] LABS: INR 0.92; PROTHROMBIN TIME 12.5 SECONDS (12.5-14.3)
== END ==
LOC: M WUC 14:38
PROVIDERS: ATTEND Dentist
DX: B18.8 Other chronic viral hepatitis (principal)

== ENCOUNTER → 2020-05-28 | Outpatient (RCR) | payer MEDICAID | LOC: M OUTALCOH 04-28 11:50 | PROVIDERS: ATTEND Psychiatry & Neurology Addiction Medicine | DX: F15.20 Other stimulant dependence, uncomplicated (principal); F12.20 Cannabis dependence, uncomplicated; F17.200 Nicotine dependence, unspecified, uncomplicated ==

== ENCOUNTER 2020-11-05 08:20 | Emergency (ER) | payer OTHER ==
[~2020-11-05] VITALS: Ht 185.4 cm; Wt 82.0 kg
[~2020-11-05 08:20] MED LIST changes: +QUET1TAB17 PO; -QUET25TA3 PO
[2020-11-05] MEDS ORDERED: GI COCKTAIL 50ML BTL(HYOSCYAMINE/MAALOX/LIDOCAINE VISCOUS)(1:3:1) PO ONE (09:55)
[2020-11-05] MEDS ORDERED: ONDANSETRON 4MG/2ML VIAL IV ONE (09:55)
[2020-11-05] MEDS ORDERED: NS 1,000 ML IV ONE (09:55)
[2020-11-05] MEDS ORDERED: PANTOPRAZOLE 40MG VIAL (C9113 PER 1) IV ONE (09:55)
--- NOTE | 2020-11-05 10:23 | REP ---
INDICATION: chest pain. COMPARISON: 04/07/2020. TECHNIQUE: Single portable AP view of the chest was performed. FINDINGS: There is no acute infiltrate or pulmonary edema. Lungs are clear. The heart is not significantly enlarged. The mediastinal silhouette is unremarkable. The visualized osseous structures are intact. IMPRESSION: No acute pulmonary disease. <Electronically signed by Forest Arreola > 11/05/20 1020
[2020-11-05 10:46] LABS: BASO % 0.4 % (0.0-1.0); EOS # 0.1 10^3/uL (0.0-0.5); EOS % 0.9 % (0.0-3.0); HEMATOCRIT 42.1 % (42.0-52.0); HEMOGLOBIN 14.9 g/dl (13.5-17.5); LYMPH # 1.6 10^3/uL (1.5-5.0); LYMPH % 14.9 % (24.0-44.0); MEAN CORPUSCULAR HEMOGLOBIN 31.9 pg (27.0-33.0); MEAN CORPUSCULAR HGB CONC 35.4 g/dl (32.0-36.5); MEAN CORPUSCULAR VOLUME 90.1 fl (80.0-96.0); MONO # 0.5 10^3/uL (0.0-0.8); NEUTROPHILS # 8.4 10^3/uL (1.5-8.5); NEUTROPHILS % 78.5 % (36.0-66.0); PLATELET COUNT, AUTOMATED 227 10^3/uL (150-450); RED BLOOD COUNT 4.67 10^6/uL (4.30-6.10); WHITE BLOOD COUNT 10.7 10^3/uL (4.0-10.0)
[2020-11-05 11:34] LABS: ALBUMIN 4.2 GM/DL (3.2-5.2); ALT/SGPT 22 U/L (12-78); BILIRUBIN,DIRECT 0.1 MG/DL (0.0-0.2); BILIRUBIN,TOTAL 0.5 MG/DL (0.2-1.0); BLOOD UREA NITROGEN 17 MG/DL (7-18); CALCIUM LEVEL 9.3 MG/DL (8.5-10.1); CARBON DIOXIDE LEVEL 22 MEQ/L (21-32); CHLORIDE LEVEL 112 MEQ/L (98-107); CPK CREATINE PHOSPHOKINASE 215 U/L (39-308); CREATININE FOR GFR 0.89 MG/DL (0.70-1.30); GLOMERULAR FILTRATION RATE > 60.0 (>60); GLUCOSE, FASTING 94 MG/DL (70-100); LIPASE 124 U/L (73-393); MB/CK RELATIVE INDEX 0.47 (< OR =4); POTASSIUM SERUM 4.4 MEQ/L (3.5-5.1); SODIUM LEVEL 141 MEQ/L (136-145); TOTAL PROTEIN 7.2 GM/DL (6.4-8.2); TROPONIN I < 0.02 NG/ML (< 0.10)
[2020-11-05 12:22] LABS: RSV AMPLIFICATION NEGATIVE (NEGATIVE)
[2020-11-05] MEDS ORDERED: ISOVUE-370 76% 100ML VIAL As Ordered ONE (13:52)
--- NOTE | 2020-11-05 14:25 | REP ---
INDICATION: chest pain. COMPARISON: Comparison is made with today's portable chest x-ray. TECHNIQUE: Contrast dose: 100 ML of Isovue [address] technique: Helical scanning is acquired and overlapping 1.5 mm and contiguous 3 mm axial images are reformatted. In addition, maximum intensity projection and multiplanar re-formation images are generated in sagittal and coronal imaging projections. FINDINGS: There is good opacification in the pulmonary arterial tree. There is no evidence of vessel cut off or filling defect to suggest pulmonary embolus. Homogeneous opacity is seen in the thoracic aorta. There is no evidence of aneurysm or dissection. There is no evidence of pleural or pericardial effusion. No hilar or mediastinal mass or adenopathy is seen. Lung window settings demonstrate no evidence of infiltrate, mass, or atelectasis. There is a benign sub pleural nodule in the right upper lobe on the minor fissure. 4 mm in diameter. No other visible pulmonary nodule. In the upper abdomen, normal adrenal glands are seen. No mass or adenopathy is seen in the upper abdomen. IMPRESSION: No CT evidence of pulmonary embolus. No active cardiopulmonary disease. <Electronically signed by Christopher Zamora > 11/05/20 [id number]
--- NOTE | 2020-11-05 14:29 | REP ---
INDICATION: gen abd pain vomiting. COMPARISON: None. TECHNIQUE: Helical scanning was acquired and 4 mm axial images are re-formatted. Coronal and sagittal MPR images were generated and reviewed. The contrast enhancement dose is 100 mL of intravenous Isovue 370. FINDINGS: Preliminary digital oracle r12 developer radiograph shows an unremarkable bowel gas pattern. The liver and the spleen are normal in size homogeneous in texture. There is a tiny accessory splenule in the left upper quadrant. Normal adrenal glands are observed bilaterally. No abnormality is visible in the pancreas or the gallbladder. Kidneys enhance symmetrically and are morphologically intact. No retroperitoneal mass or adenopathy is observed. Small and large intestinal bowel loops are unremarkable in the upper abdomen and pelvis. The right testis is noted incidentally in the distal aspect of the inguinal canal. No abdominal wall defect is seen. No bony destructive lesion is seen. IMPRESSION: No acute abdominal or pelvic abnormality. <Electronically signed by Christopher Zamora > 11/05/20 [id number]
[2020-11-05] MEDS ORDERED: ZOFR4TAB16 PO (15:31)
[2020-11-05 15:53] VITALS: BP 117/76
--- NOTE | 2020-11-06 05:55 | ECGEPIP ---
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
== END 2020-11-05 16:02 | disposition home or self-care (01) ==
LOC: M ED 08:20
DX: R11.10 Vomiting, unspecified (principal); R10.9 Unspecified abdominal pain; F19.10 Other psychoactive substance abuse, uncomplicated; Z86.19 Personal history of other infectious and parasitic diseases; F17.200 Nicotine dependence, unspecified, uncomplicated
CPT/HCPCS: 71045; 71275; 74177; 80048; 80076; 82550; 82553; 83690; 85025; 85379; 87631; 93005; 93041; 96361; 96374; 96375; 99284; C9113; J2405; Q9967

== ENCOUNTER → 2022-03-27 | Outpatient (CLI) | payer OTHER ==
[~2022-03-27] MED LIST changes: +LIDO15SO4 PO; -LIDO2SOL17 PO; +ZOFR4TAB16 PO
== END ==
LOC: M RAD 14:29
PROVIDERS: ATTEND Physician Assistant
DX: R07.9 Chest pain, unspecified (principal); R06.02 Shortness of breath

== ENCOUNTER → 2022-09-30 | Outpatient (CLI) | payer OTHER ==
[~2022-09-30] MED LIST changes: +LIDO15SO PO; -LIDO15SO4 PO
== END ==
LOC: M RAD 18:37
PROVIDERS: ATTEND Physician Assistant
DX: R22.2 Localized swelling, mass and lump, trunk (principal)

== ENCOUNTER 2023-08-24 13:10 | Inpatient (IN) | payer OTHER, SELFPAY ==
[~2023-08-24] VITALS: Ht 185.4 cm; Wt 75.6 kg
[~2023-08-24 13:10] MED LIST changes: -LIDO15SO PO; +LIDO15SO8 PO
[2023-08-24 13:51] LABS: HEMATOCRIT 41.8 % (42.0-52.0); HEMOGLOBIN 14.9 g/dl (13.5-17.5); MEAN CORPUSCULAR HEMOGLOBIN 31.4 pg (27.0-33.0); MEAN CORPUSCULAR HGB CONC 35.6 g/dl (32.0-36.5); PLATELET COUNT, AUTOMATED 288 10^3/uL (150-450); RED BLOOD COUNT 4.75 10^6/uL (4.30-6.10); WHITE BLOOD COUNT 7.5 10^3/uL (4.0-10.0)
[2023-08-24 14:12] LABS: BARBITURATES URINE NEGATIVE (NEGATIVE); BENZODIAZEPINES URINE NEGATIVE (NEGATIVE); COCAINE METABOLITE URINE NEGATIVE (NEGATIVE); ETHYL ALCOHOL (ETHANOL) < 0.003 % (0.000-0.010); METHADONE URINE NEGATIVE (NEGATIVE); OPIATES URINE NEGATIVE (NEGATIVE); PHENCYCLIDINE URINE NEGATIVE (NEGATIVE)
[2023-08-24 14:14] LABS: AMPHETAMINES LEVEL URINE POSITIVE (NEGATIVE); CANNABINOIDS URINE POSITIVE (NEGATIVE); SALICYLATE LEVEL < 3.0 MG/DL (<30)
[2023-08-24 14:15] LABS: ALBUMIN 4.6 G/DL (3.2-5.2); ALKALINE PHOSPHATASE 78 U/L (46-116); ALT/SGPT 12 U/L (7.0-40); AST/SGOT 10 U/L (<34); BILIRUBIN,DIRECT 0.5 MG/DL (<0.4); BILIRUBIN,TOTAL 1.7 MG/DL (0.3-1.2); BLOOD UREA NITROGEN 25 MG/DL (9-23); CALCIUM LEVEL 10.1 MG/DL (8.5-10.1); CARBON DIOXIDE LEVEL 24 MMOL/L (20-31); CHLORIDE LEVEL 109 MMOL/L (98-107); CREATININE FOR GFR 1.17 MG/DL (0.70-1.30); GLOMERULAR FILTRATION RATE > 60.0 (>60); GLUCOSE, FASTING 98 MG/DL (60-100); POTASSIUM SERUM 4.1 MMOL/L (3.5-5.1); SODIUM LEVEL 141 MMOL/L (136-145); TOTAL PROTEIN 7.4 G/DL (5.7-8.2)
[2023-08-24 14:17] LABS: THYROID STIMULATING HORMONE 1.576 uIU/ML (0.55-4.78)
[2023-08-24] MEDS ORDERED: HOME MED LIST COMPLETE! XX SCH (21:55)
[2023-08-24] MEDS ORDERED: ACETAMINOPHEN TAB 650MG DOSE (2X325MG) PO PRN (22:00)
[2023-08-24] MEDS ORDERED: IBUPROFEN 400MG TAB PO PRN (22:00)
[2023-08-24] MEDS ORDERED: MOM 30ML SUSPENSION UDC PO PRN (22:00)
[2023-08-24] MEDS ORDERED: MAALOX 30 ML SUSP *UDC PO PRN (22:00)
[2023-08-25 06:32] VITALS: BP 125/63; TEMP 98.5; O2SAT 100
[2023-08-25] MEDS: diphenhydrAMINE 25MG CAP PO PRN (09:45)
[2023-08-25] MEDS: HALOPERIDOL LACTATE 5MG/ML VIAL IM STA (17:07)
[2023-08-25] MEDS: LORazepam 2 MG/ML 1ML VIAL IM STA (17:07)
[2023-08-25] MEDS: diphenhydrAMINE 50MG/ML VIAL IM STA (17:07)
[2023-08-26 06:17] VITALS: BP 114/59; TEMP 98.8; O2SAT 99
[2023-08-26 16:17] VITALS: BP 116/56; TEMP 98.5; O2SAT 96
[2023-08-27 06:03] VITALS: BP 120/65; TEMP 99; O2SAT 97
[2023-08-27 16:09] VITALS: BP 135/80; TEMP 98.4; O2SAT 97
[2023-08-27] MEDS: BENZTROPINE 1 MG TAB PO ONE (18:14)
[2023-08-28 06:04] VITALS: BP 127/70; TEMP 98.4; O2SAT 100
[2023-08-28 16:49] VITALS: BP 140/83; TEMP 98.8; O2SAT 99
[2023-08-28] MEDS: traZODone 50 MG TAB PO PRN (20:16)
[2023-08-29 05:58] VITALS: BP 121/66; TEMP 99.1; O2SAT 98
== END 2023-08-29 12:32 | disposition home or self-care (01) | DRG 755 ==
LOC: M ED 13:10 → M PSY 08-25 00:17
PROVIDERS: ADMIT Student in an Organized Health Care Education/Training Program; ATTEND Student in an Organized Health Care Education/Training Program
DX: F43.20 Adjustment disorder, unspecified (principal); R45.851 Suicidal ideations; F31.9 Bipolar disorder, unspecified; F60.89 Other specific personality disorders; Z88.6 Allergy status to analgesic agent; Z87.891 Personal history of nicotine dependence; E80.6 Other disorders of bilirubin metabolism; R63.4 Abnormal weight loss; F15.10 Other stimulant abuse, uncomplicated; F12.10 Cannabis abuse, uncomplicated; Z91.52 Personal history of nonsuicidal self-harm